=== PATIENT | male | born 1935 | race Caucasian/White ===

== ENCOUNTER 2021-07-16 03:02 | Inpatient (IN) | payer OTHER ==
[2021-07-16] MEDS ORDERED: ONDANSETRON 4 MG/2 ML VIAL ONE ×2 (03:23→16:19)
[2021-07-16] MEDS ORDERED: MORPHINE 2 MG/ML SYR ONE ×2 (03:23→05:49)
[2021-07-16 05:59] LABS: Absolute Lymphocytes (CBC) 0.6 K/uL (0.7-4.9); Hematocrit 46.4 % (39.6-49.0); Lymphocytes % 6.5 % (15.3-44.8); MPV 9.1 fL (7.6-11.3); RBC Red Blood Cell Count 4.83 M/uL (4.33-5.43)
[2021-07-16 06:03] LABS: Protime INR 0.9
[2021-07-16 06:13] LABS: Albumin 3.8 g/dL (3.4-5.0); Bilirubin Direct 0.2 mg/dL (0-0.2); Bilirubin Total 0.7 mg/dL (0.2-1.0); Protein, Total 7.7 g/dL (6.4-8.2)
--- NOTE | 2021-07-16 06:25 | ER ---
Nurse's Notes [facility] Name: Solomon Cook Age: 86 yrs Sex: Male : 1935 Arrival Date: 07/16/2021 Time: 03:04 Bed 6 Private MD: Diagnosis: Femoral neck fracture, left Presentation: 07/16 03:04 Chief complaint: EMS states: pt fell going up stairs, c/o l knee pain. Coronavirus as6 screen: At this time, the client does not indicate any symptoms associated with coronavirus-19. Ebola Screen: No symptoms or risks identified at this time. Initial Sepsis Screen: Does the patient meet any 2 criteria? No. Patient's initial sepsis screen is negative. Does the patient have a suspected source of infection? No. Patient's initial sepsis screen is negative. Risk Assessment: Do you want to hurt yourself or someone else? Patient reports no desire to harm self or others. Onset of symptoms was July 16, 2021. 03:04 Method Of Arrival: EMS: [facility] as6 03:04 Acuity: SHRUTHI 3 as6 Historical: - Allergies: 03:09 No Known Allergies; as6 - Home Meds: 03:09 None [Active]; as6 - PMHx: 03:09 None; as6 - PSHx: 03:09 Appendectomy; as6 - Immunization history:: Adult Immunizations not up to date. - Social history:: Smoking status: Patient denies any tobacco usage or history of. Screenin:13 Abuse screen: Denies threats or abuse. Denies injuries from another. Nutritional as6 screening: No deficits noted. Tuberculosis screening: No symptoms or risk factors identified. Fall Risk Fall in past 12 months (25 points). No secondary diagnosis (0 pts). IV access (20 points). Ambulatory Aid- None/Bed Rest/Nurse Assist (0 pts). Gait- Weak (10 pts.). Mental Status- Oriented to own ability (0 pts). Total Duarte Fall Scale indicates High Risk Score (45 or more points). Side Rails Up X 2 Frequent Obs/Assessments Occuring As available patient and family educated on Fall Prevention Program and Strategies. Assessment: 03:15 General: Appears uncomfortable, Behavior is calm, cooperative. Pain: Complains of pain as6 in left leg Quality of pain is described as sharp, shooting. Neuro: Level of Consciousness is awake, alert, obeys commands, Oriented to person, place, time, situation. Cardiovascular: Capillary refill < 3 seconds Patient's skin is warm and dry. Respiratory: Airway is patent Trachea midline Respiratory effort is even, unlabored, Respiratory pattern is regular, symmetrical. Derm: Skin is intact. Musculoskeletal: Reports pain in left leg. 04:08 General: pt still c/o pain to l leg, medicated per provider orders, "I feel like if I as6 stand up I could pass out from the pain" . 06:10 General: pt states he is feeling better and only c/o pain to l leg during movement . as6 Vital Signs: 03:04 BP 162 / 106; Pulse 98; Resp 20 S; Temp 98.5(O); Pulse Ox 99% on R/A; Weight 58.97 kg as6 (R); Height 5 ft. 7 in. (170.18 cm) (R); Pain 10/10; 04:08 BP 195 / 101; Pulse 94; Resp 18 S; Pulse Ox 99% on R/A; as6 05:45 BP 155 / 103; Pulse 87; Resp 18 S; Pulse Ox 100% on R/A; as6 03:04 Body Mass Index 20.36 (58.97 kg, 170.18 cm) as6 ED Course: 03:04 Patient arrived in ED. as6 03:05 Marlo Lezama MD is Attending Physician. mh7 03:09 Triage completed. as6 03:13 Arm band placed on. as6 03:14 Bed in low position. Call light in reach. Side rails up X2. personal lines underwriter on. Pulse as6 ox on. NIBP on. Warm blanket given. 03:17 Blake Sanabria, REGLA is Primary Nurse. as6 04:13 Femur Left XRAY In Process Unspecified. EDMS 04:13 Knee Left 3 View XRAY In Process Unspecified. EDMS 04:13 Tib Fib Left XRAY In Process Unspecified. EDMS 04:42 Pelvis XRAY In Process Unspecified. EDMS 06:22 Odessa Montana MD is Hospitalizing Provider. 7 07:06 Primary Nurse role handed off by Blake Sanabria, REGLA bp 07:06 Michael Villalba, RN is Primary Nurse. bp Administered Medications: 03:58 Drug: morphine 2 mg Route: IVP; Site: right forearm; as6 03:58 Drug: Zofran (Ondansetron) 4 mg Route: IVP; Site: right forearm; as6 05:57 Drug: morphine 2 mg Route: IVP; Site: right forearm; as6 09:07 Not Given (admit order usedd): D5-1/2 NS 1000 ml IV at 75 ml/hr continuous bp Outcome: 06:24 Decision to Hospitalize by Provider. [facility] 12:30 Patient left the ED. bp Signatures: Dispatcher [employer] EDMS Michael Villalba, RN RN bp Marlo Lezama MD MD 7 Blake Sanabria RN RN as6
--- NOTE | 2021-07-16 06:25 | EDPHYS ---
Physician Documentation [facility] Name: Solomon Cook Age: 86 yrs Sex: Male : 1935 Arrival Date: 07/16/2021 Time: 03:04 Bed 6 Private MD: ED Physician Marlo Lezama HPI: 07/16 03:26 This 86 yrs old Male presents to ER via EMS with complaints of Fall. Left leg pain.. mh7 03:27 Details of fall: The patient fell from an upright position, while walking, Going up 7 some stairs, and struck wood doroteo. Onset: The symptoms/episode began/occurred yesterday. Associated injuries: The patient sustained left leg, painful injury. Severity of symptoms: At their worst the symptoms were moderate, last night, in the emergency department the symptoms have improved, moderately. Historical: - Allergies: 03:09 No Known Allergies; as6 - Home Meds: 03:09 None [Active]; as6 - PMHx: 03:09 None; as6 - PSHx: 03:09 Appendectomy; as6 - Immunization history:: Adult Immunizations not up to date. - Social history:: Smoking status: Patient denies any tobacco usage or history of. ROS: 03:27 Constitutional: Negative for fever, chills, and weight loss, Eyes: Negative for injury, mh7 pain, redness, and discharge, ENT: Negative for injury, pain, and discharge, Neck: Negative for injury, pain, and swelling, Cardiovascular: Negative for chest pain, palpitations, and edema, Respiratory: Negative for shortness of breath, cough, wheezing, and pleuritic chest pain, Abdomen/GI: Negative for abdominal pain, nausea, vomiting, diarrhea, and constipation, Back: Negative for injury and pain, : Negative for injury, bleeding, discharge, and swelling, Skin: Negative for injury, rash, and discoloration, Neuro: Negative for headache, weakness, numbness, tingling, and seizure, Psych: Negative for depression, anxiety, suicide ideation, homicidal ideation, and hallucinations, Allergy/Immunology: Negative for hives, rash, and allergies, Endocrine: Negative for neck swelling, polydipsia, polyuria, polyphagia, and marked weight changes, Hematologic/Lymphatic: Negative for swollen nodes, abnormal bleeding, and unusual bruising. Exam: 03:27 Head/Face: Normocephalic, atraumatic. Eyes: Pupils equal round and reactive to light, mh7 extra-ocular motions intact. Lids and lashes normal. Conjunctiva and sclera are non-icteric and not injected. Cornea within normal limits. Periorbital areas with no swelling, redness, or edema. ENT: Nares patent. No nasal discharge, no septal abnormalities noted. Tympanic membranes are normal and external auditory canals are clear. Oropharynx with no redness, swelling, or masses, exudates, or evidence of obstruction, uvula midline. Mucous membranes moist. Neck: Trachea midline, no thyromegaly or masses palpated, and no cervical lymphadenopathy. Supple, full range of motion without nuchal rigidity, or vertebral point tenderness. No Meningismus. Chest/axilla: Normal chest wall appearance and motion. Nontender with no deformity. No lesions are appreciated. Cardiovascular: Regular rate and rhythm with a normal S1 and S2. No gallops, murmurs, or rubs. Normal PMI, no JVD. No pulse deficits. Respiratory: Lungs have equal breath sounds bilaterally, clear to auscultation and percussion. No rales, rhonchi or wheezes noted. No increased work of breathing, no retractions or nasal flaring. Abdomen/GI: Soft, non-tender, with normal bowel sounds. No distension or tympany. No guarding or rebound. No evidence of tenderness throughout. Back: No spinal tenderness. No costovertebral tenderness. Full range of motion. Skin: Warm, dry with normal turgor. Normal color with no rashes, no lesions, and no evidence of cellulitis. Neuro: Awake and alert, GCS 15, oriented to person, place, time, and situation. Cranial nerves II-XII grossly intact. Motor strength 5/5 in all extremities. Sensory grossly intact. Cerebellar exam normal. Normal gait. Psych: Awake, alert, with orientation to person, place and time. Behavior, mood, and affect are within normal limits. 03:27 Constitutional: The patient appears in no acute distress, alert, awake, uncomfortable. 03:27 Musculoskeletal/extremity: Extremities: noted in the Left thigh and left knee: pain, tenderness, ROM: limited active range of motion due to pain, in the left leg, limited passive range of motion due to pain, in the left leg, Circulation is intact in all extremities. Sensation intact. Compartment Syndrome exam of affected extremity: is normal. no numbness, no tingling, no sensation deficit, no palor, no weak pulses, Joints: the left knee displays tenderness, Weight bearing: able to fully bear weight, Tendon exam: specific tendon testing normal through active and passive range of motion Vital Signs: 03:04 BP 162 / 106; Pulse 98; Resp 20 S; Temp 98.5(O); Pulse Ox 99% on R/A; Weight 58.97 kg as6 (R); Height 5 ft. 7 in. (170.18 cm) (R); Pain 10/10; 04:08 BP 195 / 101; Pulse 94; Resp 18 S; Pulse Ox 99% on R/A; as6 05:45 BP 155 / 103; Pulse 87; Resp 18 S; Pulse Ox 100% on R/A; as6 03:04 Body Mass Index 20.36 (58.97 kg, 170.18 cm) as6 MDM: 06:21 Differential diagnosis: abrasion, contusion, fracture, sprain. Data reviewed: vital [facility] signs, nurses notes, EMS record, lab test result(s), CBC, electrolytes, radiologic studies, plain films. Data interpreted: Pulse oximetry: on room air is 100 %. Interpretation: normal. Counseling: I had a detailed discussion with the patient and/or guardian regarding: the historical points, exam findings, and any diagnostic results supporting the discharge/admit diagnosis, the presence of at least one elevated blood pressure reading (>120/80) during this emergency department visit, lab results, radiology results, the need for further work-up and treatment in the hospital. Response to treatment: the patient's symptoms have mildly improved after treatment. Physician consultation: Saul Melo MD was contacted at 05:54, regarding patient's condition, and will see patient in inpatient room, would like admission per Dr. Odessa Montana MD. 06:24 Patient medically screened. [facility] 07/16 05:22 Order name: Basic Metabolic Panel; Complete Time: 06:18 7 07/16 05:22 Order name: CBC with Diff [facility] 07/16 05:22 Order name: Type And Screen [facility] 07/16 05:22 Order name: LFT's; Complete Time: 06:18 [facility] 07/16 05:22 Order name: Protime (+inr); Complete Time: 06:18 [facility] 07/16 05:22 Order name: Ptt, Activated; Complete Time: 06:18 [facility] 07/16 05:53 Order name: COVID-19 (Coronavirus) Document "Date of Onset" if Symptomatic [facility] 07/16 06:10 Order name: CBC Smear Scan [facility] 07/16 06:38 Order name: Troponin I [facility] 07/16 06:38 Order name: CBC with Automated Diff [facility] 07/16 06:38 Order name: CBC with Automated Diff [facility] 07/16 06:38 Order name: Comprehensive Metabolic Panel [facility] 07/16 06:38 Order name: Comprehensive Metabolic Panel [facility] 07/16 07:43 Order name: SARS-COV-2 RT PCR [facility] 07/16 03:16 Order name: Femur Left XRAY [facility] 07/16 03:16 Order name: Knee Left 3 View XRAY [facility] 07/16 03:17 Order name: Tib Fib Left XRAY [facility] 07/16 04:17 Order name: Pelvis XRAY [facility] 07/16 05:22 Order name: Labs collected and sent; Complete Time: 06:09 [facility] 07/16 05:54 Order name: EKG; Complete Time: 05:55 [facility] 07/16 06:38 Order name: CONS Physician Consult [facility] 07/16 06:38 Order name: NPO [facility] 07/16 06:41 Order name: Physical Therapy Consult [facility] 07/16 06:41 Order name: CONS Rehab Consult [facility] 07/16 09:19 Order name: ABO/RH no charge [facility] 07/16 05:54 Order name: EKG - Nurse/Tech; Complete Time: 07:00 [facility] 07/16 05:56 Order name: NPO; Complete Time: 06:10 [facility] Administered Medications: 03:58 Drug: morphine 2 mg Route: IVP; Site: right forearm; as6 03:58 Drug: Zofran (Ondansetron) 4 mg Route: IVP; Site: right forearm; as6 05:57 Drug: morphine 2 mg Route: IVP; Site: right forearm; as6 09:07 Not Given (admit order usedd): D5-1/2 NS 1000 ml IV at 75 ml/hr continuous bp Disposition Summary: 07/16/21 06:24 Hospitalization Ordered Hospitalization Status: Inpatient Admission 7 Provider: Odessa Montana Condition: Stable mh7 Problem: new mh7 Symptoms: have improved mh7 Bed/Room Type: Standard [facility] Location: [facility] ER HOLD(07/16/21 11:08) bp Room Assignment: ERHOLD-(07/16/21 11:08) bp Diagnosis - Femoral neck fracture, left mh7 Forms: - Medication Reconciliation Form mh7 - SBAR form 7 Signatures: Dispatcher [employer] EDMS Michael Villalba, RN RN bp Marlo Lezama MD MD mh7 Blake Sanabria RN RN as6 Corrections: (The following items were deleted from the chart) 04:38 04:21 Hip Left 2 View+RAD.RAD.BRZ ordered. [facility] EDMS 11:08 06:24 Telemetry/MedSurg (Inpatient) mh7 bp 11:08 06:24 mh7 bp
[2021-07-16] MEDS ORDERED: ONDANSETRON 4 MG/2 ML VIAL IV PRN (06:36)
[2021-07-16] MEDS ORDERED: MORPHINE 4 MG/ML SYR IV PRN (06:36)
[2021-07-16] MEDS ORDERED: ACETAMINOPHEN 500 MG TAB PO PRN (06:36)
[2021-07-16 06:49] LABS: Blood Morphology Comment NOT SEEN (NOT SEEN); Platelet Estimate ADEQ; White Blood Cell Scan OK (OK)
[2021-07-16] MEDS: NA CHLORIDE 0.9% 1,000 ML IV SCH ×2 (07:00→20:20)
[2021-07-16] MEDS ORDERED: NA CHLORIDE 0.9% 1,000 ML ONE (09:14)
--- NOTE | 2021-07-16 09:18 | P.HP ---
Certification for Inpatient Patient admitted to: Inpatient With expected LOS: >2 Midnights Patient will require the following post-hospital care: Rehabilitation Practitioner: I am a practitioner with admitting privileges, knowledge of patient current condition, hospital course, and medical plan of care. Services: Services provided to patient in accordance with Admission requirements found in Title 42 Section 412.3 of the Code of Federal Regulations Patient History Date of Service: 07/16/21 Reason for admission: Left hip fracture History of Present Illness: Patient is a 86-year-old gentleman who came to the hospital after falling on the stairs. He fell on hip when was going up the stairs, and he landed on his left side. He was having a hard time moving and he was brought to the emergency room. X-ray revealed left-sided hip fracture. Patient be admitted to the hospital for further evaluation. Patient does not have a lot of medical problem s. He is in pretty good health. He will be admitted and he is medically cleared for surgical intervention. Allergies No Known Allergies Allergy (Unverified 07/16/21 09:22) Home Medications: NK [No Home Meds] 07/16/21 - Past Medical/Surgical History Past Medical History: Patient denies medical history -: Appendectomy - Family History Father Family History: Reviewed- Non-Contributory - Social History Smoking Status: Never smoker Alcohol use: No CD- Drugs: No Review of Systems 10-point ROS is otherwise unremarkable Physical Examination - Vital Signs Temperature: 98 F Blood Pressure: 180/90 Pulse: 80 Respirations: 18 Pulse Ox (%): 95 - Physical Exam General: Alert, In no apparent distress, Oriented x3 HEENT: Atraumatic, PERRLA, Mucous membr. moist/pink, EOMI, Sclerae nonicteric Neck: Supple, 2+ carotid pulse no bruit, No LAD, Without JVD or thyroid abnormality Respiratory: Clear to auscultation bilaterally, Normal air movement Cardiovascular: Regular rate/rhythm, Normal S1 S2 Gastrointestinal: Normal bowel sounds, No tenderness Musculoskeletal: Tenderness Integumentary: No rashes Neurological: Normal gait, Normal speech, Normal strength at 5/5 x4 extr, Normal tone, Sensation intact, Cranial nerves 3-12 intact, Normal affect Lymphatics: No axilla or inguinal lymphadenopathy - Studies Laboratory Data (last 24 hrs) 07/16/21 05:38: PT 10.3, INR 0.90, APTT 23.6 L 07/16/21 05:38: WBC 9.00, Hgb 15.6, Hct 46.4, Plt Count 187 07/16/21 05:38: Sodium 139, Potassium 4.0, BUN 28 H, Creatinine 1.89 H, Glucose 124 H, Total Bilirubin 0.7, AST 14 L, ALT 15, Alkaline Phosphatase 56 Assessment & Plan - Problems (Diagnosis) (1) Hip fracture, left Current Visit: Yes Status: Acute - Plan Plan: 1. NPO 2. Orthopedic consultation 3. Pain control 4. Blood pressure control 5. Patient has no significant cardiopulmonary risk factors and the benefits of surgery outweigh the risks. Patient has no significant medical problems and is at very low risk for cardiopulmonary complications in the operative and perioperative period. Discharge Plan: Home Plan to discharge in: Greater than 2 days - Advance Directives Does patient have a Living Will: No Does patient have a Durable POA for Healthcare: No - Code Status/Comfort Care Code Status Assessed: Yes Code Status: Full Code Critical Care: No Time Spent Managing PTS Care (In Minutes): 45
[2021-07-16] MEDS ORDERED: METOPROLOL TARTRATE 5 MG/5 ML INJ IV ONE (10:17)
[2021-07-16] MEDS: METOPROLOL TARTRATE 5 MG/5 ML INJ IV PRN ×2 (10:19→15:29)
[2021-07-16 12:43] VITALS: BMI 19.5
[2021-07-16] MEDS ORDERED: TRANEXAMIC ACID 1,000 MG in NA CHLORIDE 0.9% 50 ML IV ONE ×4 (16:00)
--- NOTE | 2021-07-16 16:08 | RAD REPORT ---
EXAM DESCRIPTION: RAD - Femur Left - 07/16/2021 4:13 am CLINICAL HISTORY: The patient is 86 years old and is Male; fall;Pain TECHNIQUE: Two views of the left femur. COMPARISON: No relevant prior studies available. FINDINGS: Bones/joints: Displaced left femoral neck fracture. No hip dislocation. Soft tissues: Unremarkable. IMPRESSION: Displaced left femoral neck fracture. Electronically signed by: Daisy Luong MD 07/16/2021 5:27 AM FINANCIAL SALES MANAGER Due to temporary technical issues with the PACS/Fluency reporting system, reports are being signed by the in house radiologists without review as a courtesy to insure prompt reporting. The interpreting radiologist is fully responsible for the content of the report.
[2021-07-16] MEDS ORDERED: Ringers Lactate 1,000 ML IV ONE (16:15)
[2021-07-16] MEDS ORDERED: propofoL 200 MG/20 ML VIAL IV ONE (16:17)
[2021-07-16] MEDS ORDERED: FENTANYL CITR 100 MCG/2 ML ONE (16:17)
[2021-07-16] MEDS ORDERED: NEOSTIGMINE 1 MG/ML -5 ML ONE (16:18)
[2021-07-16] MEDS ORDERED: dexAMETHasone 4 MG/ML VIAL ONE (16:18)
[2021-07-16] MEDS ORDERED: MIDAZOLAM HCL 2 MG/2 ML INJ ONE (16:18)
[2021-07-16] MEDS ORDERED: GLYCOPYRROLATE 0.2 MG/ML SYR ONE (16:18)
[2021-07-16] MEDS ORDERED: LIDOCAINE 1% MPF 5 ML VIAL ONE (16:18)
[2021-07-16] MEDS ORDERED: KETOROLAC 30 MG/ML INJ ONE (16:19)
[2021-07-16] MEDS ORDERED: ROCURONIUM 50 MG/5 ML VIAL IV ONE (16:19)
[2021-07-16] MEDS ORDERED: MORPHINE 10 MG/ML VIAL ONE (16:19)
--- NOTE | 2021-07-16 16:39 | RAD REPORT ---
EXAM DESCRIPTION: RAD - Knee Left 3 View - 07/16/2021 4:13 am CLINICAL HISTORY: The patient is 86 years old and is Male; fall;Pain TECHNIQUE: Three views of the left knee. COMPARISON: No relevant prior studies available. FINDINGS: Bones/joints: Mild bone demineralization. No effusion. No acute fracture. No dislocation. Soft tissues: Unremarkable. IMPRESSION: No acute fracture visualized. Electronically signed by: Daisy Luong MD 07/16/2021 5:29 AM METAL CUT OFF SAW OPERATOR Due to temporary technical issues with the PACS/Fluency reporting system, reports are being signed by the in house radiologists without review as a courtesy to insure prompt reporting. The interpreting radiologist is fully responsible for the content of the report.
--- NOTE | 2021-07-16 16:41 | RAD REPORT ---
EXAM DESCRIPTION: RAD - Tib Fib Left - 07/16/2021 4:14 am CLINICAL HISTORY: The patient is 86 years old and is Male; fall;Pain TECHNIQUE: Two views of the left tibia and fibula. COMPARISON: No relevant prior studies available. FINDINGS: Bones/joints: Unremarkable. No acute fracture. No dislocation. Soft tissues: Unremarkable. No radiopaque foreign body. IMPRESSION: No acute fracture visualized. Electronically signed by: Daisy Luong MD 07/16/2021 5:30 AM TUBER OPERATOR Due to temporary technical issues with the PACS/Fluency reporting system, reports are being signed by the in house radiologists without review as a courtesy to insure prompt reporting. The interpreting radiologist is fully responsible for the content of the report.
[2021-07-16] MEDS ORDERED: CEFAZOLIN ONE (16:50)
[2021-07-16] MEDS ORDERED: NS ONE (16:50)
--- NOTE | 2021-07-16 16:57 | RAD REPORT ---
EXAM DESCRIPTION: RAD - Pelvis - 07/16/2021 4:42 am CLINICAL HISTORY: The patient is 86 years old and is Male; TRAUMA TECHNIQUE: Single frontal view of the pelvis. COMPARISON: No relevant prior studies available. FINDINGS: Bones/joints: Displaced left femoral neck fracture. No hip dislocation. Soft tissues: Unremarkable. IMPRESSION: Displaced left femoral neck fracture. Electronically signed by: Daisy Luong MD 07/16/2021 5:27 AM DIABETIC EDUCATOR Due to temporary technical issues with the PACS/Fluency reporting system, reports are being signed by the in house radiologists without review as a courtesy to insure prompt reporting. The interpreting radiologist is fully responsible for the content of the report.
--- NOTE | 2021-07-16 18:23 | CON ---
Reason For Consultation: Left femoral neck fracture. History Of Present Illness: Mr. Cook is an 86-year-old gentleman who sustained of left femoral n melody fracture about 6 days prior to his presentation. He was minimally ambulatory in his home. He ca me into the emergency room after continued pain. He is in pretty good shape. He has no medications at home. He is alert, oriented x3. Complains of pain only in the left hip. [facility] taken in [facility] reveal a completely displaced left femoral neck fracture. Physical Examination: General: He is alert, oriented x3. Chest: Clear. Abdomen: Soft. Extremities: Left hip is painful, not assessed removed secondary to known fracture. Neurologic: He appears to be neurovascular intact. Diagnostic Studies: X-rays revealed as outlined. Plan: Plan will be to proceed with a left hip hemiarthroplasty after medical clearance. CHERY/KALYN Voice ID: [id number] Report ID: [id number]
[2021-07-16] MEDS ORDERED: HYDROCODONE/APAP 7.5/325 MG TAB PO PRN (18:46)
[2021-07-16] MEDS ORDERED: ALBUTEROL 2.5 MG/3 ML NEB SOL ONE (18:54)
[2021-07-16] MEDS ORDERED: NACHLORIDE 0.45% 1,000 ML IV ONE (19:06)
--- NOTE | 2021-07-16 20:26 | RAD REPORT ---
EXAM DESCRIPTION: RAD - Pelvis - 07/16/2021 7:37 pm CLINICAL HISTORY: S/P LEFT HIP PATRICK ARTHROPLASTY COMPARISON: Pelvis dated 07/16/2021 FINDINGS: Postoperative changes are present of a left hip arthroplasty. No unexpected immediate post operative finding. Skin herminio are present laterally.
[2021-07-16] MEDS: NACHLORIDE 0.45% 1,000 ML IV SCH (20:43)
[2021-07-16] MEDS: DOCUSATE NA 100 MG CAP PO SCH (20:43)
--- NOTE | 2021-07-16 22:29 | OP ---
Surgeon: Saul Mahmood MD Fire Extinguisher Mechanic: Size Worker: BRENDEN Moeller. Preoperative Diagnosis: Left femoral neck fracture. Postoperative Diagnosis: Left femoral neck fracture. Procedure Performed: Left hip hemiarthroplasty. Complications: None. Disposition: Recovery room, stable. Operative Report In Detail: The patient was taken to the operative suite, placed in the supine posit ion, induced anesthesia. The left hip was prepped and draped in the usual sterile fashion. Utilizin g a posterior approach to the hip, the tensor fascia skyler was incised. The external rotator was elev ated subperiosteally and tagged for later reattachment. The fractured femoral neck was delivered, os teotomized 1 fingerbreadth above the lesser trochanter followed by reaming broach technique for a 12 stem after delivery of a 48 ball. The 12 stem was then placed, standard offset, with a +3 ball and p ermanent 48 head. The patient tolerated the procedure well, reversing of anesthesia at the time of d ictation. A layered closure was performed including the repair of external rotators through drill ho les in bone. CHERY/KALYN Voice ID: [id number] Report ID: [id number]
[2021-07-16] MEDS ORDERED: LORazepam 2 MG/ML VIAL IV ONE (22:54)
[2021-07-16] MEDS: MORPHINE 2 MG/ML SYR IV PRN (23:18)
[2021-07-17] MEDS: CEFAZOLIN 1 GM in NA CHLORIDE 0.9% 50 ML IVPB SCH ×2 (00:04→08:32)
[2021-07-17] MEDS ORDERED: CEFAZOLIN/NS 1gm 1 GM/50 ML BAG IVPB SCH (01:00)
[2021-07-17 06:03] LABS: Absolute Lymphocytes (CBC) 0.4 K/uL (0.7-4.9); Hematocrit 34.7 % (39.6-49.0); Lymphocytes % 5.4 % (15.3-44.8); MPV 9.1 fL (7.6-11.3)
[2021-07-17 06:20] LABS: Albumin 2.6 g/dL (3.4-5.0); Bilirubin Total 0.6 mg/dL (0.2-1.0); Potassium 4.8 mmol/L (3.5-5.1); Protein, Total 5.8 g/dL (6.4-8.2)
[2021-07-17] MEDS: DOCUSATE NA 100 MG CAP PO SCH ×2 (08:31→20:25)
[2021-07-17] MEDS: NACHLORIDE 0.45% 1,000 ML IV SCH ×2 (10:13→22:57)
[2021-07-17] MEDS: ENOXAPARIN 30 MG/0.3 ML SQ SCH ×2 (10:13→22:58)
--- NOTE | 2021-07-17 11:20 | P.CNS ---
Date of Consult: 07/16/21 Reason for Consult: left hip fracture Chief Complaint: Left hip fracture History of Present Illness: patient fell at home after missing last steps comming down stairs, he initiallt tried to nighat around the home but then the pain became to much to bare weight, doi 07/08/2021 8 days ago. pain localized to left hip. NPO Allergies No Known Allergies Allergy (Unverified 07/16/21 09:22) Home Medications: NK [No Home Meds] 07/16/21 - Past Medical/Surgical History Diabetic: No -: HTN -: Appendectomy - Family History Father Family History: Reviewed- Non-Contributory - Social History Alcohol use: No CD- Drugs: No Caffeine use: Yes Place of Residence: Home Review of Systems 10-point ROS is otherwise unremarkable Physical Examination Temp Pulse Resp BP Pulse Ox 97.0 F 59 20 148/81 H 96 07/17/21 08:00 07/17/21 08:00 07/17/21 08:00 07/17/21 08:00 07/17/21 08:00 General: Alert, Oriented x3 Neck: Supple Respiratory: Normal air movement Cardiovascular: No edema Capillary refill: <2 Seconds Musculoskeletal: Other (left hip pain) Neurological: Normal speech, Normal affect - Problems (1) Left displaced femoral neck fracture Onset Date: ~07/08/21 Current Visit: Yes Status: Acute Plan: we will plan to do a left hip hemiarthroplasty as soon as he is safe and cleared, consented now (2) Left displaced femoral neck fracture Current Visit: Yes Status: Acute
--- NOTE | 2021-07-17 11:25 | P.PN ---
Subjective Date of Service: 07/17/21 Chief Complaint: Left hip fracture Subjective: No new changes Review of Systems 10-point ROS is otherwise unremarkable Physical Examination - Vital Signs Temperature: 97.0 F Blood Pressure: 148/81 Pulse: 59 Respirations: 20 Pulse Ox (%): 96 - Physical Exam Musculoskeletal: Other (dressings c/d/I nvi) Assessment And Plan - Current Problems (Diagnosis) (1) Left displaced femoral neck fracture Onset Date: ~07/08/21 Current Visit: Yes Status: Acute Plan: Full WBAT with PT, anticoagulate 28 days from discharge, follow up in office 2 weeks post op. hospitalist to manage. change dressing to Aquacel dressing prior to discharge (2) Left displaced femoral neck fracture Current Visit: Yes Status: Acute
[2021-07-17] MEDS: MORPHINE 2 MG/ML SYR IV PRN (23:12)
[2021-07-18] MEDS: MORPHINE 2 MG/ML SYR IV PRN (02:45)
[2021-07-18] MEDS ORDERED: MORPHINE 2 MG/ML SYR IV ONE (03:02)
[2021-07-18] MEDS: DOCUSATE NA 100 MG CAP PO SCH ×2 (09:00→20:11)
[2021-07-18] MEDS: ENOXAPARIN 30 MG/0.3 ML SQ SCH ×2 (12:00→22:36)
[2021-07-18] MEDS: NACHLORIDE 0.45% 1,000 ML IV SCH (15:07)
--- NOTE | 2021-07-18 16:13 | CON ---
Date of Consultation: 07/17/2021 Reason For Consultation: Cardiac preop evaluation for hip fracture surgery. History Of Present Illness: 86-year-old male with no significant past medical history, presented to hospital after falling on the stairs and had left hip pain, found to have left hip fracture, presente d to the emergency room and a surgical fixation was planned. However, the patient denies having any history of cardiac disease or any chest pain or active chest pain, but is an elderly gentleman, not v jin active. Past Medical History: Denies. Past Surgical History: Appendectomy. Medications: Refer reconciliation sheet for detailed list. Allergies: NO KNOWN DRUG ALLERGIES. Family History: No premature coronary artery disease or cancer. Social History: Does not smoke or drink. Does not use any drugs. Review of Systems: All systems reviewed and they were negative except for mentioned in HPI. Physical Examination: Vital Signs: Reviewed and were stable. Head and Neck: Pupils are equal, reactive to light. Intact eye movements. No JVD. No cervical lym phadenopathy. Neck is supple. Thyroid is not enlarged. Lungs: Clear to auscultation bilaterally. Heart: Regular rate and rhythm. No extra sounds. Abdomen: Soft, nontender. Bowel sounds positive. No organomegaly. No masses or hernia. No rigidi ty or rebound. Extremities: No edema, clubbing, or cyanosis. Intact pulses. Skin: No rashes. Neurologic: Alert, awake, oriented x3. No acute focal deficits appreciated. Investigations: His creatinine is 1.68. Hemoglobin is 11.9. Assessment And Recommendations: Cardiac preop evaluation. The patient was seen and he already had t he surgery and no cardiac complications noted. At this point, I will be available for any further qu estions. No further cardiac workup is indicated at this time unless patient presents with any sympto ms. Thank you for the consult. /KALYN Voice ID: [id number] Report ID: [id number]
[2021-07-18] MEDS: METOPROLOL TARTRATE 5 MG/5 ML INJ IV PRN (22:44)
[2021-07-19] MEDS: NACHLORIDE 0.45% 1,000 ML IV SCH ×3 (01:43→22:00)
[2021-07-19] MEDS: HYDRALAZINE HCL 20 MG/ML VIAL IV PRN ×2 (01:43→11:50)
[2021-07-19] MEDS: MORPHINE 2 MG/ML SYR IV PRN (04:54)
[2021-07-19 05:47] LABS: Absolute Lymphocytes (CBC) 0.4 K/uL (0.7-4.9); Hematocrit 25.2 % (39.6-49.0); Lymphocytes % 6.8 % (15.3-44.8); MPV 9.3 fL (7.6-11.3); RBC Red Blood Cell Count 2.63 M/uL (4.33-5.43)
[2021-07-19 06:11] LABS: Albumin 1.7 g/dL (3.4-5.0); Bilirubin Total 0.6 mg/dL (0.2-1.0); Phosphorus 1.3 mg/dL (2.5-4.9); Potassium 3.4 mmol/L (3.5-5.1); Protein, Total 4.3 g/dL (6.4-8.2)
[2021-07-19 06:33] LABS: Blood Morphology Comment NOT SEEN (NOT SEEN); Platelet Estimate DECR; White Blood Cell Scan OK (OK)
[2021-07-19] MEDS: DOCUSATE NA 100 MG CAP PO SCH ×2 (08:13→20:16)
[2021-07-19] MEDS ORDERED: POTASSIUM PHOS 30 MM in NA CHLORIDE 0.9% 500 ML IV ONE (13:16)
[2021-07-19] MEDS ORDERED: CALCIUM GLUC 10% INJ 9.3 MEQ in NA CHLORIDE 0.9% 100 ML IV ONE (13:16)
[2021-07-19] MEDS ORDERED: FUROSEMIDE 20 MG/ 2ML VIAL IV ONE (13:19)
--- NOTE | 2021-07-19 13:26 | P.PN ---
Subjective Date of Service: 07/17/21 Patient was taken to the operating room and he is doing well. He is walking with physical therapy. He does not want go to rehabilitation and he may qualify for outpatient physical therapy. Will continue to monitor him closely. His blood pressure is slightly elevated. Review of Systems 10-point ROS is otherwise unremarkable Physical Examination - Vital Signs Temperature: 98 F Blood Pressure: 180/90 Pulse: 80 Respirations: 18 Pulse Ox (%): 95 - Physical Exam General: Alert, In no apparent distress, Oriented x3 Respiratory: Clear to auscultation bilaterally, Normal air movement Cardiovascular: Regular rate/rhythm, Normal S1 S2, No murmurs Gastrointestinal: Normal bowel sounds, Soft and benign, Non-distended, No tenderness Musculoskeletal: No clubbing, No swelling, Tenderness Integumentary: No rashes Neurological: Normal strength at 5/5 x4 extr, Sensation intact, Cranial nerves 3-12 intact - Studies Medications List Reviewed: Yes Assessment & Plan - Problems (Diagnosis) (1) Hip fracture, left Current Visit: Yes Status: Acute - Plan Plan: 1. Diet as tolerated 2. Orthopedic consultation appreciated 3. Pain control 4. Blood pressure control 5. Continue anti coagulation 6. Appreciate physical therapy evaluation Discharge Plan: Home Plan to discharge in: Greater than 2 days - Advance Directives Does patient have a Living Will: No Does patient have a Durable POA for Healthcare: No - Code Status/Comfort Care Code Status: Full Code Critical Care: No Time Spent Managing PTS Care (In Minutes): 35
--- NOTE | 2021-07-19 13:29 | P.PN ---
Date of Service: 07/18/21 Subjective Patient had some hematuria. Singleton catheter was replaced. IV hydration Review of Systems 10-point ROS is otherwise unremarkable Physical Examination - Vital Signs Reviewed - Physical Exam General: Alert, In no apparent distress, Oriented x3 Respiratory: Clear to auscultation bilaterally, Normal air movement Cardiovascular: Regular rate/rhythm, Normal S1 S2, No murmurs Gastrointestinal: Normal bowel sounds, Soft and benign, Non-distended, No tenderness Musculoskeletal: No clubbing, No swelling, Tenderness : Singleton in place. Patient with hematuria - Studies Medications List Reviewed: Yes Assessment & Plan - Problems (Diagnosis) (1) Hip fracture, left Current Visit: Yes Status: Acute - Plan Continue with plan of care as mentioned below: 1. Diet as tolerated 2. Orthopedic consultation appreciated 3. Continue with Singleton catheter-IV fluids and will Dc in morning if no hematuria 4. Blood pressure control 5. Continue anti coagulation 6. Appreciate physical therapy evaluation
--- NOTE | 2021-07-19 13:30 | P.PN ---
Date of Service: 07/19/21 Subjective Patient continues to do well.Dc Singleton catheter. Resume anti coagulation if no bleeding. Strict blood pressure control. May benefit from inpatient rehab as patient is not really doing well with multiple medical problems in the hospital. Patient clinical conditions are stable. Review of Systems 10-point ROS is otherwise unremarkable Physical Examination - Vital Signs Reviewed - Physical Exam General: Alert, In no apparent distress, Oriented x3 Respiratory: Clear to auscultation bilaterally, Normal air movement Cardiovascular: Regular rate/rhythm, Normal S1 S2, No murmurs Gastrointestinal: Normal bowel sounds, Soft and benign, Non-distended, No tenderness Musculoskeletal: No clubbing, No swelling, Tenderness : Singleton in place. Patient with hematuria Assessment & Plan - Problems (Diagnosis) (1) Hip fracture, left Current Visit: Yes Status: Acute - Plan Continue with plan of care as mentioned below: 1. Diet as tolerated 2. Orthopedic consultation appreciated 3. Continue with Singleton catheter-IV fluids and will Dc in morning if no hematuria 4. Blood pressure control 5. Continue anti coagulation 6. Appreciate physical therapy evaluation
[2021-07-19] MEDS: ENSURE HIGH PROTEIN 237 ML CAN PO SCH ×2 (14:00→20:17)
[2021-07-19] MEDS ORDERED: TEMAZEPAM 15 MG CAP PO PRN (17:16)
[2021-07-19] MEDS ORDERED: ONDANSETRON 4 MG/2 ML VIAL IV ONE (17:16)
[2021-07-19] MEDS: METOPROLOL TAR 25 MG TAB PO SCH (17:43)
--- NOTE | 2021-07-19 18:03 | RAD REPORT ---
EXAM DESCRIPTION: RAD - Abdomen 1 View (KUB) - 07/19/2021 5:36 pm CLINICAL HISTORY: nausea and vomiting COMPARISON: No comparisons FINDINGS: No gastric dilatation. Air is seen in multiple nondilated small bowel loops. Air and stool are seen scattered throughout nondilated colon from cecum to rectum. No obstruction, free air or pne umatosis. No suspicious calcifications. No significant bony findings left convex curvature is seen in the lumbar spine. Left total hip prosth esis in place. IMPRESSION: No obstruction or acute finding. Enteritis or ileus are still possible.
[2021-07-19] MEDS: JUVEN PACKET PO SCH (20:17)
[2021-07-20] MEDS: METOPROLOL TAR 25 MG TAB PO SCH ×2 (05:41→17:09)
[2021-07-20] MEDS: NACHLORIDE 0.45% 1,000 ML IV SCH ×3 (05:41→23:00)
[2021-07-20] MEDS ORDERED: TAMSULOSIN 0.4 MG SR CAP PO ONE (06:40)
[2021-07-20 06:48] LABS: Absolute Lymphocytes (CBC) 0.5 K/uL (0.7-4.9); Hematocrit 33.4 % (39.6-49.0); Lymphocytes % 5.5 % (15.3-44.8); MPV 9.5 fL (7.6-11.3); RBC Red Blood Cell Count 3.49 M/uL (4.33-5.43)
[2021-07-20 07:12] LABS: Albumin 2.5 g/dL (3.4-5.0); Bilirubin Total 1.3 mg/dL (0.2-1.0); Potassium 4.2 mmol/L (3.5-5.1); Protein, Total 6.4 g/dL (6.4-8.2)
[2021-07-20] MEDS: HYDRALAZINE HCL 20 MG/ML VIAL IV PRN (08:05)
[2021-07-20] MEDS: ENSURE HIGH PROTEIN 237 ML CAN PO SCH ×4 (08:05→21:00)
[2021-07-20] MEDS: ENOXAPARIN 30 MG/0.3 ML SQ SCH ×2 (08:05→17:09)
[2021-07-20] MEDS: DOCUSATE NA 100 MG CAP PO SCH ×2 (08:05→20:41)
[2021-07-20] MEDS: JUVEN PACKET PO SCH ×2 (08:05→20:42)
[2021-07-20] MEDS ORDERED: LOSARTAN POTASSIUM 50 MG TABLET PO SCH (09:00)
[2021-07-20 09:04] LABS: Blood Morphology Comment NOT SEEN (NOT SEEN); Platelet Estimate ADEQ
--- NOTE | 2021-07-20 22:58 | P.PN ---
Date of Service: 07/20/21 Subjective Patient continues to have weakness. Patient is doing okay with therapy. Patient had some bladder retention. Patient had to have Singleton catheter replaced. Hematuria has resolved. However, patient still has bladder retention and has started on Flomax. Hemoglobin yesterday was low but today it is normal. Renal function is elevated. Continue with IV fluids. Review of Systems 10-point ROS is otherwise unremarkable Physical Examination - Vital Signs Reviewed - Physical Exam General: Alert, In no apparent distress, Oriented x3 Respiratory: Clear to auscultation bilaterally, Normal air movement Cardiovascular: Regular rate/rhythm, Normal S1 S2, No murmurs Gastrointestinal: Normal bowel sounds, Soft and benign, Non-distended, No tenderness Musculoskeletal: No clubbing, No swelling, Tenderness : Singleton in place. Assessment & Plan - Problems (Diagnosis) (1) Hip fracture, left Current Visit: Yes Status: Acute (2) Current Visit: Yes Status: Resolved (3) Bladder retention Current Visit: Yes Status: Acute (4) Hematuria Current Visit: Yes Status: Resolved - Plan Continue with plan of care as mentioned below: 1. Diet as tolerated 2. Orthopedic consultation appreciated; continue with physical therapy 3. Continue with Singleton catheter-IV fluids and will start on Flomax; may do a leg bag 4. Blood pressure control 5. Holding anti coagulation 6. Gentle IV hydration 7. GI and DVT prophylaxis
[2021-07-21 05:43] LABS: Absolute Lymphocytes (CBC) 0.5 K/uL (0.7-4.9); Hematocrit 27.2 % (39.6-49.0); Lymphocytes % 7.3 % (15.3-44.8); MPV 9.2 fL (7.6-11.3); RBC Red Blood Cell Count 2.84 M/uL (4.33-5.43)
[2021-07-21] MEDS: NACHLORIDE 0.45% 1,000 ML IV SCH ×2 (05:44→08:29)
[2021-07-21] MEDS: METOPROLOL TAR 25 MG TAB PO SCH ×2 (05:45→17:55)
[2021-07-21 06:01] LABS: Magnesium 2.3 mg/dL (1.8-2.4); Potassium 3.9 mmol/L (3.5-5.1)
--- NOTE | 2021-07-21 06:23 | P.PN ---
Subjective Date of Service: 07/21/21 Primary Care Provider: unknown Chief Complaint: Left hip fracture Subjective: Improving (Patient more alert. No confusion noted. Singleton catheter in place. 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 Preoperative Diagnosis: Left femoral neck fracture. Postoperative Diagnosis: Left femoral neck fracture. Procedure Performed: Left hip hemiarthroplasty. Complications: None. Physical exam: General: Alert, In no apparent distress, Oriented x3. No confusion noted. Follows commands Respiratory: Clear to auscultation bilaterally, Normal air movement Cardiovascular: Regular rate/rhythm, Normal S1 S2, No murmurs Gastrointestinal: Normal bowel sounds, Soft and benign, Non-distended, No tenderness Musculoskeletal: No clubbing, No swelling, Tenderness : Singleton in place. No hematuria noted. Impression: Left hip fracture status post repair Acute encephalopathy secondary to sundowning Bladder retention Hematuria Hypertension Plan: Left hip fracture status left hip eyad-arthroplasty: Doing well. Will change IV pain medication to oral. Continue with DVT prophylaxis. Continue physical therapy. Will recommend inpatient rehab to further assist. Will discuss with PT to help evaluate. Acute encephalopathy secondary to sundowning: Much improved. No further confusion. Back to his baseline. Will monitor closely. Bladder retention: Patient remains on Flomax 0.8 mg. Sing[address] catheter in place. No further hematuria noted. We will continue to monitor. Hematuria: No hematuria noted. Consider voiding trial versus continue with Singleton catheter. Hypertension: New diagnosis. Continue to adjust blood pressure medication for better blood pressure control. Increase metoprolol to 50 mg 1 pill twice daily. Also on losartan 50 mg daily. DVT prophylaxis: Lovenox CODE STATUS: Full code Advance care planning: Inpatient rehab. Patient agreeable to inpatient rehab if approved. Time Spent Managing Pts Care (In Minutes): 55
[2021-07-21] MEDS ORDERED: LOSARTAN POTASSIUM 50 MG TABLET PO SCH (08:28)
[2021-07-21] MEDS: JUVEN PACKET PO SCH ×2 (09:00→20:11)
[2021-07-21] MEDS: ENSURE HIGH PROTEIN 237 ML CAN PO SCH ×3 (09:00→20:11)
[2021-07-21] MEDS: TAMSULOSIN 0.4 MG SR CAP PO SCH (09:32)
[2021-07-21] MEDS: DOCUSATE NA 100 MG CAP PO SCH ×2 (09:32→20:11)
[2021-07-21 10:16] VITALS: O2SAT 97
--- NOTE | 2021-07-21 13:55 | P.DS ---
Admission Date: 07/16/21 Discharge Date: 07/21/21 Primary Care Provider: unknown Disposition: TRANSFER TO INPATIENT REHAB Discharge Condition: GOOD Reason for Admission: Left hip fracture Consultations: Orthopedics-Dr. 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 Preoperative Diagnosis: Left femoral neck fracture. Postoperative Diagnosis: Left femoral neck fracture. Procedure Performed: Left hip hemiarthroplasty. Complications: None. Medical Problem List: Left hip fracture status post repair Acute encephalopathy secondary to sundowning Bladder retention Hematuria Hypertension Brief History of Present Illness: 86-year-old presented after a fall. He fell along the stairs. Patient found to have left-sided hip fracture. Patient was admitted for treatment. Hospital Course: Patient presented after a fall. Patient found to have left hip fracture. Patient required hospitalization. Patient was seen and evaluated by orthopedics. Surgical invention was recommended. Patient had left hip hemiarthroplasty. Postoperatively patient had acute encephalopathy with sundowning. This resolved. At discharge pain well controlled. Patient back to his baseline. Patient was evaluated for inpatient rehab. Patient agrees. Patient accepted. Patient will continue at inpatient rehab to continue therapy. Continue with DVT prophyla xisLovenox for at least 14 days. Continue with physical therapy recommendations. Follow-up with orthopedics as directed. Patient also had bladder retention. Singleton catheter was placed. When the patient had some sundowning he pulled on the Singleton catheter. Hematuria was noted. Patient was started on Flomax and catheter replaced. Patient has done well. No further bleeding noted. Patient remains on Flomax. At discharge patient will continue with Flomax 0.8 mg daily. Consider voiding trial in inpatient rehab in the next several days. If the patient redevelops with retention then Singleton catheter will need to be placed with follow-up with urology. Patient found to have hypertension. This appears to be a new diagnosis. Blood pressures have been adjusted. At discharge patient will continue with metoprolol 50 mg 1 pill twice daily and losartan 50 mg 1 pill twice daily. Recommend to maintain blood pressure less than 130/80. If blood pressures remain above 140/90 further adjustment may be required. Recommend follow-up with PCP as an outpatient to further address. Vital Signs/Physical Exam: Temp Pulse Resp BP Pulse Ox 97.9 F 60 18 194/76 H 96 07/21/21 12:00 07/21/21 12:00 07/21/21 12:00 07/21/21 12:00 07/21/21 12:00 General: Alert, In no apparent distress, Oriented x3, Cooperative HEENT: Atraumatic Neck: Supple Respiratory: Clear to auscultation bilaterally, Normal air movement Cardiovascular: Normal pulses, Regular rate/rhythm Gastrointestinal: Normal bowel sounds, No tenderness, No masses, No rebound, No guarding Musculoskeletal: No erythema, No tenderness, No warmth Integumentary: No erythema, No warmth, No cyanosis Neurological: Normal speech, Normal strength at 5/5 x4 extr, Normal tone, Normal affect Urinary: Singleton catheter Laboratory Data at Discharge: WBC 7.10 K/uL (4.3-10.9) D 07/21/21 05:11 Hgb 9.6 g/dL (13.6-17.9) L 07/21/21 05:11 Hct 27.2 % (39.6-49.0) L D 07/21/21 05:11 Plt Count 146 K/uL (152-406) L D 07/21/21 05:11 PT 10.3 SECONDS (9.5-12.5) 07/16/21 05:38 INR 0.90 07/16/21 05:38 APTT 23.6 SECONDS (24.3-36.9) L 07/16/21 05:38 Sodium 135 mmol/L (136-145) L 07/21/21 05:11 Potassium 3.9 mmol/L (3.5-5.1) 07/21/21 05:11 BUN 31 mg/dL (7-18) H 07/21/21 05:11 Creatinine 1.06 mg/dL (0.55-1.3) 07/21/21 05:11 Glucose 95 mg/dL (74-106) 07/21/21 05:11 Phosphorus 1.3 mg/dL (2.5-4.9) L 07/19/21 05:37 Magnesium 2.3 mg/dL (1.8-2.4) 07/21/21 05:11 Total Bilirubin 1.3 mg/dL (0.2-1.0) H 07/20/21 06:10 AST 36 U/L (15-37) 07/20/21 06:10 ALT 19 U/L (12-78) 07/20/21 06:10 Alkaline Phosphatase 44 U/L (45-117) L D 07/20/21 06:10 Troponin I 0.03 ng/mL (0.0-0.045) 07/16/21 06:58 Home Medications: Docusate [Colace Cap*] 100 mg PO DAILY #30 cap 07/21/21 Losartan Potassium [Cozaar*] 50 mg PO BID #60 tablet 07/21/21 Metoprolol Tartrate 50 mg PO BID #60 tablet 07/21/21 Tamsulosin [Flomax*] 0.8 mg PO DAILY #60 cap 07/21/21 New Medications: Docusate [Colace Cap*] 100 mg PO DAILY #30 cap Losartan Potassium [Cozaar*] 50 mg PO BID #60 tablet Tamsulosin [Flomax*] 0.8 mg PO DAILY #60 cap Metoprolol Tartrate 50 mg PO BID #60 tablet Physician Discharge Instructions: Patient presented after a fall. Patient found to have left hip fracture. Patient required hospitalization. Patient was seen and evaluated by orthopedics. Surgical invention was recommended. Patient had left hip hemiarthroplasty. Postoperatively patient had acute encephalopathy with sundowning. This resolved. At discharge pain well controlled. Patient back to his baseline. Patient was evaluated for inpatient rehab. Patient agrees. Patient accepted. Patient will continue at inpatient rehab to continue therapy. Continue with DVT prophylaxisLovenox 30 mg daily sc for at least 14 days. Continue with physical therapy recommendations. Follow-up with orthopedics as directed. Patient also had bladder retention. Singleton catheter was placed. When the patient had some sundowning he pulled on the Singleton catheter. Hematuria was noted. Patient was started on Flomax and catheter replaced. Patient has done well. No further bleeding noted. Patient remains on Flomax. At discharge patient will continue with Flomax 0.8 mg daily. Consider voiding trial in inpatient rehab in the next several days. If the patient redevelops with retention then Singleton catheter will need to be placed with follow-up with urology. Patient found to have hypertension. This appears to be a new diagnosis. Blood pressures have been adjusted. At discharge patient will continue with metoprolol 50 mg 1 pill twice daily and losartan 50 mg 1 pill twice daily. Recommend to maintain blood pressure less than 130/80. If blood pressures remain above 140/90 further adjustment may be required. Recommend follow-up with PCP as an outpatient to further address. OK TO DC IV AND DC HOME FOLLOW-UP WITH PRIMARY CARE PROVIDER IN 1-2 WEEKS FOLLOW-UP WITH ORTHOPEDICS IN 1-2 WEEKS RETURN TO THE ER IF symptoms worsen CALL or TEXT DR. LEMUS AT [phone] IF ANY QUESTIONS REGARDING HOSPITAL STAY. PLEASE CALL THE FLOOR AT [phone] IF ANY MEDICATION OR NURSING QUESTIONS. Diet: AHA Activity: Fall precautions Followup: NONE,NONE [Primary Care Provider] - Time spent managing pt's care (in minutes): 55
[2021-07-21] MEDS: ENOXAPARIN 30 MG/0.3 ML SQ SCH (17:55)
[2021-07-21] MEDS: LOSARTAN POTASSIUM 50 MG TABLET PO SCH (20:11)
--- NOTE | 2021-07-22 06:02 | P.DS ---
Admission Date: 07/16/21 Discharge Date: 07/22/21 Primary Care Provider: unknown Disposition: TRANSFER TO INPATIENT REHAB Discharge Condition: GOOD Reason for Admission: Left hip fracture Consultations: Orthopedics-Dr. Mahmood Procedures: COVID: Negative Surgery: Date of Procedure: 07/16/2021 Surgeon: Saul Mahmood MD Dairy Cattle Farm Manager: Motion Picture Camera Operator: BRENDEN Moeller. Preoperative Diagnosis: Left femoral neck fracture. Postoperative Diagnosis: Left femoral neck fracture. Procedure Performed: Left hip hemiarthroplasty. Complications: None. Medical Problem List: Left hip fracture status post repair Acute encephalopathy secondary to sundowning Bladder retention Hematuria Hypertension Brief History of Present Illness: 86-year-old presented after a fall. He fell along the stairs. Patient found to have left-sided hip fracture. Patient was admitted for treatment. Hospital Course: Patient presented after a fall. Patient found to have left hip fracture. Patient required hospitalization. Patient was seen and evaluated by orthopedics. Surgical invention was recommended. Patient had left hip hemiarthroplasty. Postoperatively patient had acute encephalopathy with sundowning. This resolved. At discharge pain well controlled. Patient back to his baseline. Patient was evaluated for inpatient rehab. Patient agrees. Patient accepted. Patient will continue at inpatient rehab to continue therapy. Continue with DVT prophyla xisLovenox for at least 14 days. Continue with physical therapy recommendations. Follow-up with orthopedics as directed. Discharge to inpatient rehab was delayed due to insurance approval. Patient improved. Patient will continue with inpatient rehab. Patient also had bladder retention. Singleton catheter was placed. When the patient had some sundowning he pulled on the Singleton catheter. Hematuria was noted. Patient was started on Flomax and catheter replaced. Patient has done well. No further bleeding noted. Patient remains on Flomax. At discharge patient will continue with Flomax 0.8 mg daily. Consider voiding trial in inpatient rehab in the next several days. If the patient redevelops with retention then Singleton catheter will need to be placed with follow-up with urology. Patient found to have hypertension. This appears to be a new diagnosis. Blood pressures have been adjusted. At discharge patient will continue with metoprolol 50 mg 1 pill twice daily and losartan 50 mg 1 pill twice daily. Recommend to maintain blood pressure less than 130/80. If blood pressures remain above 140/90 further adjustment may be required. Recommend follow-up with PCP as an outpatient to further address. Vital Signs/Physical Exam: Temp Pulse Resp BP Pulse Ox 98 F 66 17 162/99 H 97 07/22/21 04:00 07/22/21 04:00 07/22/21 04:00 07/22/21 04:00 07/22/21 04:00 General: Alert, In no apparent distress, Oriented x3, Cooperative HEENT: Atraumatic Neck: Supple Respiratory: Clear to auscultation bilaterally, Normal air movement Cardiovascular: Normal pulses, Regular rate/rhythm Gastrointestinal: Normal bowel sounds Musculoskeletal: No erythema, No tenderness, No warmth Integumentary: No tenderness/swelling Neurological: Normal speech, Normal strength at 5/5 x4 extr, Normal tone, Normal affect Laboratory Data at Discharge: WBC 7.10 K/uL (4.3-10.9) D 07/21/21 05:11 Hgb 9.6 g/dL (13.6-17.9) L 07/21/21 05:11 Hct 27.2 % (39.6-49.0) L D 07/21/21 05:11 Plt Count 146 K/uL (152-406) L D 07/21/21 05:11 PT 10.3 SECONDS (9.5-12.5) 07/16/21 05:38 INR 0.90 07/16/21 05:38 APTT 23.6 SECONDS (24.3-36.9) L 07/16/21 05:38 Sodium 135 mmol/L (136-145) L 07/21/21 05:11 Potassium 3.9 mmol/L (3.5-5.1) 07/21/21 05:11 BUN 31 mg/dL (7-18) H 07/21/21 05:11 Creatinine 1.06 mg/dL (0.55-1.3) 07/21/21 05:11 Glucose 95 mg/dL (74-106) 07/21/21 05:11 Phosphorus 1.3 mg/dL (2.5-4.9) L 07/19/21 05:37 Magnesium 2.3 mg/dL (1.8-2.4) 07/21/21 05:11 Total Bilirubin 1.3 mg/dL (0.2-1.0) H 07/20/21 06:10 AST 36 U/L (15-37) 07/20/21 06:10 ALT 19 U/L (12-78) 07/20/21 06:10 Alkaline Phosphatase 44 U/L (45-117) L D 07/20/21 06:10 Troponin I 0.03 ng/mL (0.0-0.045) 07/16/21 06:58 Home Medications: Docusate [Colace Cap*] 100 mg PO DAILY #30 cap 07/21/21 Losartan Potassium [Cozaar*] 50 mg PO BID #60 tablet 07/21/21 Metoprolol Tartrate 50 mg PO BID #60 tablet 07/21/21 Tamsulosin [Flomax*] 0.8 mg PO DAILY #60 cap 07/21/21 New Medications: Docusate [Colace Cap*] 100 mg PO DAILY #30 cap Losartan Potassium [Cozaar*] 50 mg PO BID #60 tablet Tamsulosin [Flomax*] 0.8 mg PO DAILY #60 cap Metoprolol Tartrate 50 mg PO BID #60 tablet Physician Discharge Instructions: Patient presented after a fall. Patient found to have left hip fracture. Patient required hospitalization. Patient was seen and evaluated by orthopedics. Surgical invention was recommended. Patient had left hip hemiarthroplasty. Postoperatively patient had acute encephalopathy with sundowning. This resolved. At discharge pain well controlled. Patient back to his baseline. Patient was evaluated for inpatient rehab. Patient agrees. Patient accepted. Patient will continue at inpatient rehab to continue therapy. Continue with DVT prophylaxisLovenox 30 mg daily sc for at least 14 days. Continue with physical therapy recommendations. Follow-up with orthopedics as directed. Patient also had bladder retention. Singleton catheter was placed. When the patient had some sundowning he pulled on the Singleton catheter. Hematuria was noted. Patient was started on Flomax and catheter replaced. Patient has done well. No further bleeding noted. Patient remains on Flomax. At discharge patient will continue with Flomax 0.8 mg daily. Consider voiding trial in inpatient rehab in the next several days. If the patient redevelops with retention then Singleton catheter will need to be placed with follow-up with urology. Patient found to have hypertension. This appears to be a new diagnosis. Blood pressures have been adjusted. At discharge patient will continue with metoprolol 50 mg 1 pill twice daily and losartan 50 mg 1 pill twice daily. Recommend to maintain blood pressure less than 130/80. If blood pressures remain above 140/90 further adjustment may be required. Recommend follow-up with PCP as an outpatient to further address. OK TO DC IV AND DC HOME FOLLOW-UP WITH PRIMARY CARE PROVIDER IN 1-2 WEEKS FOLLOW-UP WITH ORTHOPEDICS IN 1-2 WEEKS RETURN TO THE ER IF symptoms worsen CALL or TEXT DR. LEMUS AT [phone] IF ANY QUESTIONS REGARDING HOSPITAL STAY. PLEASE CALL THE FLOOR AT [phone] IF ANY MEDICATION OR NURSING QUESTIONS. Diet: AHA Activity: Fall precautions Followup: NONE,NONE [Primary Care Provider] - Time spent managing pt's care (in minutes): 55
[2021-07-22] MEDS: METOPROLOL TAR 25 MG TAB PO SCH (06:50)
[2021-07-22 07:48] VITALS: BP 178/60; TEMP 98.8
[2021-07-22] MEDS: NACHLORIDE 0.45% 1,000 ML IV SCH (08:28)
[2021-07-22] MEDS: DOCUSATE NA 100 MG CAP PO SCH (08:28)
[2021-07-22] MEDS: LOSARTAN POTASSIUM 50 MG TABLET PO SCH (08:28)
[2021-07-22] MEDS: TAMSULOSIN 0.4 MG SR CAP PO SCH (08:28)
[2021-07-22] MEDS: JUVEN PACKET PO SCH (08:29)
[2021-07-22] MEDS: ENSURE HIGH PROTEIN 237 ML CAN PO SCH (08:29)
== END 2021-07-22 12:49 | DRG 522 ==
LOC: ER 03:02 → ERHOLD 06:41 → 2ND 11:58
PROVIDERS: ADMIT Hospitalist; ATTEND Family Medicine
PROC: 0SRS0JZ Replacement of Left Hip Joint, Femoral Surface with Synthetic Substitute, Open Approach (ICD-10-PCS; principal; 2021-07-16 17:00)
DX: S72.002A Fracture of unspecified part of neck of left femur, initial encounter for closed fracture (principal); F05 Delirium due to known physiological condition; G93.49 Other encephalopathy; R31.9 Hematuria, unspecified; R33.9 Retention of urine, unspecified; N28.9 Disorder of kidney and ureter, unspecified; I10 Essential (primary) hypertension; W10.8XXA Fall (on) (from) other stairs and steps, initial encounter; Z79.899 Other long term (current) drug therapy; Z20.822 Contact with and (suspected) exposure to COVID-19
CPT/HCPCS: 36415; 72170; 74018; 80048; 80053; 80076; 83735; 83880; 84100; 84484; 85025; 85610; 85730; 86850; 86900; 86901; 88305; 88311; 96374; 96375; 97110; 97116; 97161; 97530; 99284; J0360; J0610; J0690; J1100; J1650; J1940; J2250; J2270; J2405; J2704; J2710; J3010; J7030; J7040; J7120; U0003

== ENCOUNTER 2021-07-17 09:13 | Inpatient (IN) | payer OTHER ==
--- NOTE | 2021-07-22 12:04 | R.PREADM ---
PRE-ADMISSION SCREENING FORM SCREENING DATE AND TIME 07/22/2021 09:20 (DENTAL HYGIENE ADMINISTRATIVE ASSISTANT) ANTICIPATED REHAB ADMISSION DATE 07/24/2021 REFERRING FACILITY [facility] REFERRAL DATE AND TIME 07/16/2021 09:20 (DENTAL HYGIENE ADMINISTRATIVE ASSISTANT) REFERRAL ROOM# 201 ACUTE ADMIT DATE 07/16/2021 Previous Rehabilitation(s): No. 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 Mike Stallings M.D. MR# [id number] NAME TEODORA GRANADOS ADDRESS [address] PHONE [facility] [id number] DATE OF 1935 AGE 86 SSN# [id number] GENDER male MARITAL STATUS PREF. LANGUAGE (IF NON-DANISH) Amharic ADMIT FROM 02 - [facility] PRE-HOSPITAL LIVING SETTING 01 - Home (private home/apt. board/care, assisted living, prison, transitional living) HOME TYPE AND DETAILS Type of home: single family house # of steps to enter the residence: 0 # of levels in the residence:2 # of steps within the residence: 8 PRE-HOSPITAL LIVING WITH Family/Relatives FAMILY SUPPORT Yes PRIMARY FAMILY CONTACT NAME TRACY GRANADOS PRIMARY FAMILY CONTACT PHONE PRIMARY FAMILY CONTACT RELATIONSHIP Brother PHONE PRIMARY FAMILY CONTACT ON ADM.? no IS PRIMARY FAMILY CONTACT AUTH. REP.? no 1ST EMERGENCY CONTACT TRACY GRANADOS 1ST CONTACT PHONE 1ST CONTACT RELATIONSHIP Brother PHONE 1ST CONTACT ON ADM. no IS 1ST CONTACT AUTH. REP.? no PHONE 2ND CONTACT ON ADM.? no PATIENT EMPLOYMENT STATUS Retired (for age) PATIENT EMPLOYER No Employer PAYOR INFORMATION: 1ST PAYOR NAME Medicare 1ST PAYOR PHONE 1ST PAYOR INJURY/ILLNESS DUE TO ACCIDENT? No ANOTHER LIBERTARIAN RESPONSIBLE? No PRIMARY REHAB/ACUTE DIAGNOSIS: LEFT HIP FRACTURE ONSET DATE 07/16/2021 REHAB IMPAIRMENT CATEGORY (HOMA): 07 Fracture of LE (FracLE) MEETS 60% rule AFFECTED EXTREMITIES: LLE PRIMARY DIAGNOSIS-RELATED SURGERIES: left hip hemiarthroplasty 07/16/2021 INTERVENTIONS: - Hypertension Blood pressure will be monitored regularly and medications administer per MD to manage effective bloo d pressure. RISK FOR COMPLICATIONS: - Falls Educated pt on fall prevention strategies to reduce/eliminate fall risk Patient will be evaluated for Fall Precautions and will be placed on Fall Precautions as indicated pe r protocol. - DVT PTT and INR will be monitored to effectively mitigate risk for development of DVT or PE while here. Medications will be administered as per MD - CVA pt has severely elevated BP and requires medical monitoring to manage and reduce reisk for CVA. - Pain Clinical staff will assess patient's pain level every shift per protocol to monitor for pain manageme nt effectiveness Educate patient on pain management strategies Medications will be given and the pain level reassessed. Clinical Staff may employ other methods such as: massage, distraction, decrease stimulus, etc. as needed - Hypertension Blood pressure will be monitored regularly and medications administer per MD to manage effective bloo d pressure. - Skin Breakdown Nursing will assess skin daily using assessment tool and will place on Skin Breakdown Precautions as Indicated per protocol - Hip Dislocation pt will be educated as to posterolateral hip precautions following recent surgery to ensure proper he aling and prevention of post-op complications. SUMMARY OF ACUTE HOSPITALIZATION: Pt. is a 86 yo Right-handed male. On 07/16/2021 he was admitted to [facility] with diagnosis LEFT HIP FRACTURE. His impairment category is Orthopaedic Disorders 08 - Unilateral Hip Fracture (08.11). Pre-morbidly, Pt. was independent/mod-I in Locomotion, Safety Awareness, Balance, and Social Cognitio n; and he had good Transfers Control, Self-Care, Sphincter Control, Endurance, and Communication. Currently, he has deficits of Locomotion, Safety Awareness, Balance, Social Cognition, Transfers Cont rol, Sphincter Control, Communication, Self-Care, and Endurance. Pt. is now referred to [facility] for acute in-patient rehabilitation in order to maximize patient's functional independence in activities of daily living, strength, ROM, and mobi lity. Patient has realistic goal of being discharged at assistance level 7-Ind to reside at Home with Fami ly/Relatives. PAST MEDICAL HISTORY HTN PAST SURGICAL HISTORY: Appendectomy MEDICATION ALLERGIES: No Known Drug Allergies (NKDA) ENVIRONMENTAL ALLERGIES: - Substance Allergies None Known - Other Allergies None Known CODE STATUS: Not Available WEIGHT/HEIGHT/BMI: WEIGHT 125 lbs HEIGHT 5' 7" BMI 19.6 DIET: - Diet Type Regular - Diet - Solid Texture Regular - Diet - Liquid Texture Regular - Tube Feed N/A REVIEW OF SYSTEMS: - Gen Alert and awake Lying in bed No apparent distress Oriented to: person, time, and place - Vital Signs Temperature: 98.8 F SBP/DBP: 196/79 Pulse:78 Resp: 16 Vital signs stable, afebrile - CVS RRR VITAL SIGNS Temperature: 98.8 F SBP/DBP: 196/79 Pulse: 78 Resp: 16 Vital signs stable, afebrile MEDICATIONS/TREATMENT: Other- See attached MAR (Medication Administration Record). CURRENT SPHINCTER CONTROL: Pre-hospital bladder status: unspecified # of bladder accidents in the last 7 days prior to screenin Pre-hospital bowel status: unspecified # of bowel accidents in the last 7 days prior to screenin Last Bowel Movement Date: 07/22/2021 CURRENT LOCOMOTION STATUS: distance walked 250 feet WITH ROLLING WALKER DETAILED CURRENT FUNCTIONAL STATUS: - Bladder accident frequency: 7-Ind - No accidents in the past 7 days - Bowel accident frequency: 7-Ind - No accidents in the past 7 days - Walking score based on distance walked: 0(N/A) score based on distance walked: 3(>=150ft) - Wheelchair score based on distance traveled: 0(N/A) QI SCORES: - Self-Care A. Eating 03-Partial/moderate assistance B. Oral hygiene 03-Partial/moderate assistance C. Toileting hygiene 88-Not attempted due to medical condition or safety concerns E. Shower/bathe self 88-Not attempted due to medical condition or safety concerns F. Upper body dressing 03-Partial/moderate assistance G. Lower body dressing 88-Not attempted due to medical condition or safety concerns H. Putting on/taking off footwear 88-Not attempted due to medical condition or safety concerns - Mobility A. Roll left and right 04-Supervision or touching assistance B. Sit to lying 04-Supervision or touching assistance C. Lying to sitting on side of bed 04-Supervision or touching assistance D. Sit to stand 04-Supervision or touching assistance E. Chair/cyv-ey-qcczu transfer 04-Supervision or touching assistance F. Toilet transfer 04-Supervision or touching assistance G. Car transfer 10-Not attempted due to environmental limitations I. Walk 10 feet 04-Supervision or touching assistance J. Walk 50 feet with two turns 04-Supervision or touching assistance K. Walk 150 feet 04-Supervision or touching assistance L. Walking 10 feet on uneven surfaces 88-Not attempted due to medical condition or safety concerns M. 1 step (curb) 88-Not attempted due to medical condition or safety concerns N. 4 steps 88-Not attempted due to medical condition or safety concerns O. 12 steps 88-Not attempted due to medical condition or safety concerns P. Picking up object 88-Not attempted due to medical condition or safety concerns R. Wheel 50 feet with two turns 09-Not applicable S. Wheel 150 feet 09-Not applicable - Bladder and Bowel Bladder continence Bowel continence - Endurance Fair - Balance Fair - Safety Awareness Fair CURRENT FUNC. DEFICITS: Self-Care, Mobility, Endurance, Balance, and Safety Awareness CURRENT / PREVIOUS ASSISTIVE DEVICES: Rolling Walker HISTORY OF FALLS. HAS THE PATIENT HAD TWO OR MORE FALLS IN THE PAST YEAR OR ANY FALL WITH INJURY IN T HE PAST YEAR?: Yes PRIOR SURGERY. DID THE PATIENT HAVE MAJOR SURGERY DURING THE 100 DAYS PRIOR TO ADMISSION?: Yes THERAPY NOTES FROM ACUTE CARE: Attached. SPECIAL NEEDS: - Safety Concerns Skin breakdown precautions needed due to skin breakdown risk PRECAUTIONS: - Posterior Hip Precaution No adduction across midline No external rotation No hip flexion >90 degrees No internal rotation No wheel chair propulsion - Weight Bearing Precaution WBAT left LE PATIENT NEEDS ACTIVE AND ONGOING THERAPEUTIC INTERVENTION OF MULTIPLE THERAPY DISCIPLINES, INCLUDING: - Dietary and Nutrition Adequate Nutrition. Nutritional Education. Nutritional Supplements. - Occupational Therapy Cognitive Retraining. Evaluate and Treat. ADL Training. Household Tasks. Patient/Family Education. Sa fety Awareness. UE Strengthening. Adaptive Equipment. Transfer Training. Visual Perceptual Training. - Speech Therapy Cognitive Training. Expressive Language Skills. Memory Strategies. Receptive Language Skills. Speech Intelligibility Training. - Physical Therapy Safety Awareness. Evaluate and Treat. Patient/Family Education. LE Strengthening. Balance Training. T ransfer Training. Mobility Training. LE ROM. PATIENT NEEDS CLOSE MEDICAL SUPERVISION BY A REHABILITATION PHYSICIAN FOR: Coordination of Treatment Team Pain Management Medical and Co-Morbidity Management DVT Management PATIENT REQUIRES 24X7 REHAB NURSING FOR MEDICAL AND FUNCTIONAL MGT. OF THE FOLLOWING DEFICITS: Disease Management Medication Management Patient/Family Education Providing Safe Environment PATIENT REQUIRES INTENSIVE, COORDINATED INTERDISCIPLINARY APPROACH TO REHAB: Arranging Home Equipment/Services Discharge Planning Family Intervention/Training Central Supply Manager/Case Management PATIENT REHAB POTENTIAL: Kal GRANADOS is able and expected to receive 3 hours of individualized therapy daily on at least 5 of every 7 days Kal GRANADOS's prognosis for significant practical improvement within a reasonable period of time appe ars Good Expected level of measurable improvement will be of a practical value to Kal GRANADOS's functional cap acity or adaptations to impairments Has a viable Discharge Plan Medically appropriate; condition is sufficiently stable to participate in intensive rehab program DISCHARGE PLAN: - Estimated Length of Stay (days) 14. - Consensus on plan Discharge plan has been discussed with primary caregiver. Patient/Family is in agreement with the janett n. Primary caregiver is in agreement with the plan. - Patient/Family Goals Return home independently. - Planned Living Setting Upon Discharge Home, to live with Family/Relatives. Transitional Living. RECOMMENDED CARE LEVEL: IRF RECOMMENDATION DETAILS: Recommended Admission to Comprehensive Rehabilitation Program to Increase Functional [place] SCREENER'S COMPLETENESS CONFIRMATION: - Screening Confirmation The patient data collection on this preadmission screening form is finished PHYSICIANS REVIEW AND ADMISSION DETERMINATION Admit - Based on my review of the Pre-Admission Screening results, in my medical judgment and experie nce, I concur with the findings and recommend admission to [facility], as this patient requires an IRF level of care. SIGNATURE PANEL: Rn Hospice - [electronically] signed by Suraj Sorto PT on 07/22/2021 at 10:45 (DENTAL HYGIENE ADMINISTRATIVE ASSISTANT) Rn Hospice - [electronically] signed by Suraj Sorto PT on 07/22/2021 at 11:26 (DENTAL HYGIENE ADMINISTRATIVE ASSISTANT) Physician Reviewer - [electronically] signed by Dr. Mike Stallings M.D. on 07/22/2021 at 12:03 (DENTAL HYGIENE ADMINISTRATIVE ASSISTANT )
[2021-07-22] MEDS ORDERED: DOCUSATE NA 100 MG CAP PO PRN (14:52)
[2021-07-22] MEDS ORDERED: BISACODYL 10 MG RECTAL SUPP PR PRN (14:59)
[2021-07-22] MEDS ORDERED: ONDANSETRON 4 MG (ODT) TAB PO PRN (14:59)
[2021-07-22] MEDS: ENOXAPARIN 30 MG/0.3 ML SQ SCH (16:34)
--- NOTE | 2021-07-22 16:55 | R.HP ---
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 board/care, assisted living, half-way, transitional living) PRE-HOSPITAL LIVING WITH Family/Relatives ENCOUNTER PHYSICIAN: Dr. Mike Stallings M.D. 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 is a 86 yo Right-handed male. On 07/16/2021 he was admitted to [facility] with diagnosis LEFT HIP FRACTURE. His impairment category is Orthopaedic Disorders 08 - Unilateral Hip Fracture (08.11). Pre-morbidly, Pt. was independent/mod-I in Locomotion, Safety Awareness, Balance, and Social Cognitio n; and he had good Transfers Control, Self-Care, Sphincter Control, Endurance, and Communication. Currently, he has deficits of Locomotion, Safety Awareness, Balance, Social Cognition, Transfers Cont rol, Sphincter Control, Communication, Self-Care, and Endurance. Pt. is now referred to [facility] for acute in-patient rehabilitation in order to maximize patient's functional independence in activities of daily living, strength, ROM, and mobi lity. Patient has realistic goal of being discharged at assistance level 7-Ind to reside at Home with Fami ly/Relatives. MEDICATION ALLERGIES: No Known Drug Allergies (NKDA) ENVIRONMENTAL ALLERGIES: - Substance Allergies None Known - Other Allergies None Known PAST MEDICAL HISTORY: HTN PAST SURGICAL HISTORY: Appendectomy SOCIAL HISTORY: - Home Living Family/Relatives REVIEW OF SYSTEMS: - Gen No Chills Fatigue No Fever - Eyes No Double Vision No itchiness - ENMT No Difficulty Swallowing - CVS No Chest Discomfort No Chest Pain Fatigue No Weight Gain - Resp No Cough No Shortness of Breath - GI Continent No Abdominal Pain Constipation No Diarrhea - Continent No Kidney Pain No Painful Urination No Urinary Urgency - MSK No Joint Pain Muscle Cramps Stiffness - Skin No Itching No Rash No Suspicious Lesions - Neuro No Coordination Difficulty No Difficulty with Concentration No Memory Loss No Seizures Weakness - Psych No Anxiety No Depression No HIV Exposure No Persistent Infections No Seasonal Allergies - Endo No Cold/Heat Intolerance No Excessive Hunger No Excessive Thirst No Excessive Urination PHYSICAL EXAM - Gen Alert and awake Lying in bed No apparent distress Oriented to: person, time, and place - Skin No breakdown No abnormalities - Eyes No abnormalities - ENMT No abnormalities - Neck No abnormalities - CVS RRR - Resp No wheezing - Abd Soft - GI Non distended Deferred - No abnormalities - Ext Left hip surgical site has good hemostasis. - MSK 4+/5 weakness in left lower extremity - Neuro 4/5 strength left lower extremity. - Psych No abnormalities VITAL SIGNS Temperature: 98.0 F SBP/DBP: 143/50 Pulse: 73 Resp: 16 NURSING: - Shower allowing shower - Skin care per protocol PRECAUTIONS: - Posterior Hip Precaution No adduction across midline No external rotation No hip flexion >90 degrees No internal rotation No wheel chair propulsion - Weight Bearing Precaution WBAT left LE ACTIVITIES OOB only with supervision QI SCORES: - Self-Care A. Eating 03-Partial/moderate assistance B. Oral hygiene 03-Partial/moderate assistance C. Toileting hygiene 88-Not attempted due to medical condition or safety concerns E. Shower/bathe self 88-Not attempted due to medical condition or safety concerns F. Upper body dressing 03-Partial/moderate assistance G. Lower body dressing 88-Not attempted due to medical condition or safety concerns H. Putting on/taking off footwear 88-Not attempted due to medical condition or safety concerns - Mobility A. Roll left and right 04-Supervision or touching assistance B. Sit to lying 04-Supervision or touching assistance C. Lying to sitting on side of bed 04-Supervision or touching assistance D. Sit to stand 04-Supervision or touching assistance E. Chair/kpo-lt-uayni transfer 04-Supervision or touching assistance F. Toilet transfer 04-Supervision or touching assistance G. Car transfer 10-Not attempted due to environmental limitations I. Walk 10 feet 04-Supervision or touching assistance J. Walk 50 feet with two turns 04-Supervision or touching assistance K. Walk 150 feet 04-Supervision or touching assistance L. Walking 10 feet on uneven surfaces 88-Not attempted due to medical condition or safety concerns M. 1 step (curb) 88-Not attempted due to medical condition or safety concerns N. 4 steps 88-Not attempted due to medical condition or safety concerns O. 12 steps 88-Not attempted due to medical condition or safety concerns P. Picking up object 88-Not attempted due to medical condition or safety concerns R. Wheel 50 feet with two turns 09-Not applicable S. Wheel 150 feet 09-Not applicable - Bladder and Bowel Bladder continence Bowel continence - Endurance Fair - Balance Fair - Safety Awareness Fair CURRENT FUNC. DEFICITS: Self-Care, Mobility, Endurance, Balance, and Safety Awareness MEDICATIONS: - Other See attached MAR (Medication Administration Record) ASSESSMENT: Pt. is a 86 yo Right-handed male.On 07/16/2021 he was admitted to [facility] with diagno sis LEFT HIP FRACTURE.His impairment category is Orthopaedic Disorders 08 - Unilateral Hip Fracture (08.11).Pre-morbidly, Pt. was independent/mod-I in Locomotion, Safety Awareness, Balance, and Social Cognition; and he had good Transfers Control, Self-Care, Sphincter Control, Endurance, and Communicat ion.Currently, he has deficits of Locomotion, Safety Awareness, Balance, Social Cognition, Transfers Control, Sphincter Control, Communication, Self-Care, and Endurance.Pt. is now referred to [facility] for acute in-patient rehabilitation in order to maximize patient's functional independence in activities of daily living, strength, ROM, and mobility.- Rehab Goal Patient has realistic goal of being discharged at assistance level 7-Ind to reside at Home with Fami ly/Relatives. - Physical Therapy Decreased range of motion - to improve, our physical therapists will perform initial evaluation of pt 's status upon admission and devise an individualized program for increasing patient's Range of Motio n. Gait dysfunction - to improve, our physical therapists will perform initial evaluation of pt's status upon admission and devise an individualized program for Gait Training, and Wheel Chair mobility Inability to transfer - to improve, our physical therapists will perform initial evaluation of pt's s tatus upon admission and devise an individualized program for Bed mobility Need for home safety evaluation - to improve, our physical therapists will perform initial evaluation of pt's status upon admission and devise an individualized program for Home Evaluation Need in caregiver upon discharge - to improve, our physical therapists will perform initial evaluatio n of pt's status upon admission and devise an individualized program for Caregiver Training New precaution - to improve, our physical therapists will perform initial evaluation of pt's status u vanessa admission and devise an individualized program for Patient precaution education Poor balance - to improve, our physical therapists will perform initial evaluation of pt's status upo n admission and devise an individualized program for Balance Training Poor endurance - to improve, our physical therapists will perform initial evaluation of pt's status u vanessa admission and devise an individualized program for Endurance Training Weakness - to improve, our physical therapists will perform initial evaluation of pt's status upon ad mission and devise an individualized program for Aquatic Therapy, Neuromuscular Reeducation, and Stre ngthening Achieving independence - to improve, our physical therapists will perform initial evaluation of pt's status upon admission and devise an individualized program for Community Reintegration Activities - Occupational Therapy ADL deficits - to improve, our occupation therapists will perform initial evaluation of pt's status u vanessa admission and devise an individualized program for Bathing, Bed mobility, Community Reintegration , Cooking, Dressing, Eating, Fine Motor Skills, Grooming, Homemaking, Kitchen Mobility, Laundry, Jessi ent Education, Safety Awareness, Splinting - Positioning, Transfers(Toilet, Tub, Shower), and Wheel C hair Management Cognitive deficits - to improve, our occupation therapists will perform initial evaluation of pt's st atus upon admission and devise an individualized program for Cognition - orientation Need for care provider - to improve, our occupation therapists will perform initial evaluation of pt's s tatus upon admission and devise an individualized program for Caregiver Training Weakness - to improve, our occupation therapists will perform initial evaluation of pt's status upon admission and devise an individualized program for Aquatic Therapy, Balance, Endurance, UE ROM, and U E strengthening MEDICAL PLAN: - Anterior Hip Precaution No abduction No active extension No adduction across midline No external rotation No hip flexion >90 degrees No internal rotation - Diet - Liquid Texture Start Regular - Tube Feed Start N/A - Diet Type Start Regular - Posterior Hip Precaution No adduction across midline No external rotation No hip flexion >90 degrees No internal rotation No wheel chair propulsion - Weight Bearing Precaution WBAT left LE - Skin care per protocol - Other See attached MAR (Medication Administration Record) - Diet - Solid Texture Regular - Shower shower DISCHARGE PLAN: - Estimated Length of Stay (days) 14. - Consensus on plan Discharge plan has been discussed with primary caregiver. Patient/Family is in agreement with the janett n. Primary caregiver is in agreement with the plan. - Patient/Family Goals Return home independently. - Planned Living Setting Upon Discharge Home, to live with Family/Relatives. Transitional Living. 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
--- NOTE | 2021-07-22 16:58 | PAPE ---
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 Mike Stallings M.D. ADMISSION DIAGNOSIS: LEFT HIP FRACTURE ONSET DATE 07/16/2021 POST-ADMISSION FUNCTIONAL/MEDICAL STATUS: - Bladder Same accident frequency: 7-Ind - No accidents in the past 7 days - Bowel Same accident frequency: 7-Ind - No accidents in the past 7 days - Walking Same score based on distance walked: 0(N/A) Same score based on distance walked: 3(>=150ft) - Wheelchair Same score based on distance traveled: 0(N/A) STATUS CHANGE EVALUATION: No change in Functional or Medical Status is identified compared with Pre-Admission screening. PATIENT NEEDS CLOSE MEDICAL SUPERVISION BY A REHABILITATION PHYSICIAN FOR: Coordination of Treatment Team Pain Management Medical and Co-Morbidity Management DVT Management PATIENT REQUIRES 24X7 REHAB NURSING FOR MEDICAL AND FUNCTIONAL MGT. OF THE FOLLOWING DEFICITS: Disease Management Medication Management Patient/Family Education Providing Safe Environment PATIENT REQUIRES INTENSIVE, COORDINATED INTERDISCIPLINARY APPROACH TO REHAB: Arranging Home Equipment/Services Discharge Planning Family Intervention/Training Special Education Coordinator/Case Management LIST OF IDENTIFIED AND POTENTIAL PROBLEMS: Alteration in leisure activities Bladder, Incontinence Bowel, Incontinence Infection, Actual or Potential Mobility Impaired Pain, Alteration in Comfort Self Care Deficit Skin Integrity, Actual or Potential Urinary Tract Infection (UTI), Actual or Potential RISK FOR COMPLICATIONS - Falls Educated pt on fall prevention strategies to reduce/eliminate fall risk. Patient will be evaluated fo r Fall Precautions and will be placed on Fall Precautions as indicated per protocol. - DVT PTT and INR will be monitored to effectively mitigate risk for development of DVT or PE while here. M edications will be administered as per MD. - CVA pt has severely elevated BP and requires medical monitoring to manage and reduce reisk for CVA. - Pain Clinical staff will assess patient's pain level every shift per protocol to monitor for pain manageme nt effectiveness. Educate patient on pain management strategies. Medications will be given and the pa in level reassessed. Clinical Staff may employ other methods such as: massage, distraction, decrease stimulus, etc. as needed. - Hypertension Blood pressure will be monitored regularly and medications administer per MD to manage effective bloo d pressure. - Skin Breakdown Nursing will assess skin daily using assessment tool and will place on Skin Breakdown Precautions as Indicated per protocol. - Hip Dislocation pt will be educated as to posterolateral hip precautions following recent surgery to ensure proper he aling and prevention of post-op complications. INTERVENTIONS - Hypertension Blood pressure will be monitored regularly and medications administer per MD to manage effective bloo d pressure. PATIENT COULD BE AT RISK FOR COMPLICATIONS FROM ADVERSE MEDICAL CONDITIONS DUE TO HIS/HER COMORBIDITI ES AND THE RIGORS OF THE INTENSIVE REHABILLITATION PROGRAM. METHODS OR INTERVENTIONS TO AVOID COMPLIC ATIONS INCLUDE: - Deep Vein Thrombosis (DVT) Prophylaxis therapy for prevention . Sequential Compression Device (SCD). TE D Hose. - Infection Clinical staff to assess and manage the signs and symptoms of infection including fever, redness, war mth, etc. - Urinary Tract Infection - Falls Patient will be evaluated for Fall Precautions and will be placed on Fall Precautions as indicated pe r protocol. - Skin Breakdown Nursing will assess skin daily using assessment tool and will place on Skin Breakdown Precautions as indicated per protocol. - Pain Clinical staff may employ non-medication methods such as massage, distraction, decrease stimulus, etc . as needed. Clinical staff will assess patient's pain level every shift per protocol to assess and e nsure pain management effectiveness. Medications will be given and the pain level re-assessed. PRELIMINARY PLAN OF CARE: - Physical Therapy Patient needs Physical Therapy for a daily minimum of 1.5 hours at least 5 out of 7 days, to improve: Mobility, Strengthening, Transfers, Stretching, ROM, Endurance, Ability to manage stairs, Gait, and Balance. - Speech Therapy Patient needs Speech Therapy for a daily minimum of 0.5 hours at least 5 out of 7 days, to improve: S wallowing, Cognition, Language Skills, and Compensatory Strategies. - Rehabilitation Nursing Patient requires 24x7 Rehabilitation Nursing for: Pain Issues, Identifying and preventing risk factor s, Monitoring and reporting current medical conditions, Assisting with ambulation and transfer, Roosevelt ting with all ADL-s, Teaching patients about disease process and medications, Family teaching, Provid ing safe environment, Bowel and Bladder Issues, Skin Integrity, and Medication Management. Patient needs Special Education Coordinator and/or Case Management for: Discharge Planning, Arranging Home Equipmen t or Services, and Family Interventions. - Dietary and Nutrition Services Patient needs Dietary and Nutrition Services for: Adequate Nutrition, Nutritional Supplements, and Nu tritional Education. - Occupational Therapy Patient needs Occupational Therapy for a daily minimum of 1.5 hours at least 5 out of 7 days, to impr ove Activities of Daily Living, including: Eating, Grooming, Bathing, Dressing, Toileting, Toilet Tra nsfers, Community Reintegration, Higher functional activities, Adaptive Equipment, Splinting, Househo ld Tasks, and Other activities as determined. QI SCORES: - Self-Care A. Eating 03-Partial/moderate assistance B. Oral hygiene 03-Partial/moderate assistance C. Toileting hygiene 88-Not attempted due to medical condition or safety concerns E. Shower/bathe self 88-Not attempted due to medical condition or safety concerns F. Upper body dressing 03-Partial/moderate assistance G. Lower body dressing 88-Not attempted due to medical condition or safety concerns H. Putting on/taking off footwear 88-Not attempted due to medical condition or safety concerns - Mobility A. Roll left and right 04-Supervision or touching assistance B. Sit to lying 04-Supervision or touching assistance C. Lying to sitting on side of bed 04-Supervision or touching assistance D. Sit to stand 04-Supervision or touching assistance E. Chair/ean-ut-pnbyo transfer 04-Supervision or touching assistance F. Toilet transfer 04-Supervision or touching assistance G. Car transfer 10-Not attempted due to environmental limitations I. Walk 10 feet 04-Supervision or touching assistance J. Walk 50 feet with two turns 04-Supervision or touching assistance K. Walk 150 feet 04-Supervision or touching assistance L. Walking 10 feet on uneven surfaces 88-Not attempted due to medical condition or safety concerns M. 1 step (curb) 88-Not attempted due to medical condition or safety concerns N. 4 steps 88-Not attempted due to medical condition or safety concerns O. 12 steps 88-Not attempted due to medical condition or safety concerns P. Picking up object 88-Not attempted due to medical condition or safety concerns R. Wheel 50 feet with two turns 09-Not applicable S. Wheel 150 feet 09-Not applicable - Bladder and Bowel Bladder continence Bowel continence - Endurance Fair - Balance Fair - Safety Awareness Fair POTENTIAL FUNCTIONAL GOALS FOR PATIENT TO ACHIEVE BY DISCHARGE: - Safety Precaution Patient will remain free from falls or injury at time of discharge. - Bed Mobility Patient will perform bed mobility at 4-Lizz level of assistance. - Transfers Patient will complete transfers from bed to chair at 4-Lizz level of assistance. - Mobility Patient will ambulate 150 ft with 4-Lizz level of assistance with RW. PATIENT REHAB POTENTIAL Kal GRANADOS is able and expected to receive 3 hours of individualized therapy daily on at least 5 of every 7 days Kal GRANADOS's prognosis for significant practical improvement within a reasonable period of time appe ars Good Expected level of measurable improvement will be of a practical value to Kal GRANADOS's functional cap acity or adaptations to impairments Has a viable Discharge Plan Medically appropriate; condition is sufficiently stable to participate in intensive rehab program DISCHARGE PLAN: - Estimated Length of Stay (days) 14. - Consensus on plan Discharge plan has been discussed with primary caregiver. Patient/Family is in agreement with the janett n. Primary caregiver is in agreement with the plan. - Patient/Family Goals Return home independently. - Planned Living Setting Upon Discharge Home, to live with Family/Relatives. Transitional Living. CONCLUSION ON REHABILITATION NECESSITY: I have evaluated patient's pre-admission functional status and, comparing it to the patient's post-ad mission functional status now, I conclude that the pre-admission assessment was accurate. Patient's c ondition on admission supports the medical necessity of admission to [facility]. It is safe to proceed with patient's therapy program. 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
[2021-07-22] MEDS: METOPROLOL TAR 50 MG TAB PO SCH (19:45)
[2021-07-22] MEDS: ENSURE HIGH PROTEIN 237 ML CAN PO SCH ×2 (19:45→19:46)
[2021-07-22] MEDS: DOCUSATE NA/SENNA CONC 1 TAB PO PRN (19:45)
[2021-07-22] MEDS: LOSARTAN POTASSIUM 50 MG TABLET PO SCH (19:45)
[2021-07-23 00:25] LABS: Urine Appearance CLOUDY (Clear); Urine Blood 3+ (Negative); Urine Color DK YELLOW (Yellow); Urine Glucose NEGATIVE (Negative); Urine Protein 1+ (Negative); Urine Specific Gravity 1.025 (1.005-1.030); Urine pH 5.5 (5.0-7.0)
[2021-07-23 00:31] LABS: Urine Bilirubin NEGATIVE (Negative)
[2021-07-23 01:05] LABS: Urine Bacteria 20-50 /HPF (NONE SEEN); Urine RBC 20-50 /HPF (NONE SEEN)
[2021-07-23 04:58] LABS: Absolute Lymphocytes (CBC) 0.4 K/uL (0.7-4.9); Hematocrit 27.9 % (39.6-49.0); Lymphocytes % 6.1 % (15.3-44.8); MPV 9.3 fL (7.6-11.3); RBC Red Blood Cell Count 2.94 M/uL (4.33-5.43)
[2021-07-23 05:26] LABS: Albumin 1.9 g/dL (3.4-5.0); Magnesium 2.4 mg/dL (1.8-2.4); Potassium 3.8 mmol/L (3.5-5.1); Prealbumin 6.7 mg/dL (20-40)
[2021-07-23] MEDS: TAMSULOSIN 0.4 MG SR CAP PO SCH (07:21)
[2021-07-23] MEDS: LOSARTAN POTASSIUM 50 MG TABLET PO SCH ×2 (07:23→19:18)
[2021-07-23] MEDS: ACETAMINOPHEN 500 MG TAB PO PRN (07:23)
[2021-07-23] MEDS: ENSURE HIGH PROTEIN 237 ML CAN PO SCH ×2 (08:00→19:18)
[2021-07-23 08:28] LABS: Blood Morphology Comment NOT SEEN (NOT SEEN); Platelet Estimate ADEQ
[2021-07-23] MEDS: POLYETHYL GLY 3350 17 GM/DOSE PO SCH (08:31)
[2021-07-23] MEDS: METOPROLOL TAR 50 MG TAB PO SCH ×2 (08:55→19:18)
[2021-07-23] MEDS: FERROUS SULFATE 325 MG TAB PO SCH ×2 (08:56→19:18)
[2021-07-23] MEDS ORDERED: NACHLORIDE 0.45% 1,000 ML IV SCH (14:00)
[2021-07-23] MEDS: DULOXETINE 20 MG CAP PO SCH (14:18)
[2021-07-23] MEDS: MEGESTROL 40 MG TAB PO SCH ×3 (14:19→19:28)
[2021-07-23] MEDS: ENOXAPARIN 30 MG/0.3 ML SQ SCH (16:13)
--- NOTE | 2021-07-23 17:07 | R.PN ---
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 Pt denied any Shortness of Breath. WBC 6.0, neutrophils 85.9, Hgb 9.5, prealbumin 6.7,Ca 7.7, glucose 119, UA esterase 1+, ketones 2+, W BC 5-10, COVID-19 is negative. Ambulated 780' with rolling walker and standby assistance. Wheelchair mobility 100' with modified ind ependence, and down 5 steps with contact guard assistance. VITAL SIGNS Temperature: 99.5 F SBP/DBP: 147/63 Pulse: 58 Resp: 16 MEDICATION ALLERGIES: No Known Drug Allergies (NKDA) ENVIRONMENTAL ALLERGIES: - Substance Allergies None Known - Other Allergies None Known NURSING: - Shower allowing shower - Skin care per protocol PRECAUTIONS: - Posterior Hip Precaution No adduction across midline No external rotation No hip flexion >90 degrees No internal rotation No wheel chair propulsion - Weight Bearing Precaution WBAT left LE ACTIVITIES OOB only with supervision THERAPIES: - Dietary and Nutrition Adequate Nutrition. Nutritional Education. Nutritional Supplements. - Occupational Therapy Cognitive Retraining. Evaluate and Treat. ADL Training. Household Tasks. Patient/Family Education. Sa fety Awareness. UE Strengthening. Adaptive Equipment. Transfer Training. Visual Perceptual Training. - Speech Therapy Cognitive Training. Expressive Language Skills. Memory Strategies. Receptive Language Skills. Speech Intelligibility Training. - Physical Therapy Safety Awareness. Evaluate and Treat. Patient/Family Education. LE Strengthening. Balance Training. T ransfer Training. Mobility Training. LE ROM. PHYSICAL EXAM - Gen Alert and awake Lying in bed No apparent distress Oriented to: person, time, and place - Skin No breakdown No abnormalities - Eyes No abnormalities - ENMT No abnormalities - Neck No abnormalities - CVS RRR - Resp No wheezing - Abd Soft - GI Non distended Deferred - No abnormalities - Ext Left hip surgical site has good hemostasis. - MSK 4+/5 weakness in left lower extremity - Neuro 4/5 strength left lower extremity. - Psych No abnormalities ASSESSMENT: Pt. is a 86 yo Right-handed male.On 07/16/2021 he was admitted to [facility] with diagno sis LEFT HIP FRACTURE.His impairment category is Orthopaedic Disorders 08 - Unilateral Hip Fracture (02.26).Pre-morbidly, Pt. was independent/mod-I in Locomotion, Safety Awareness, Balance, and Social Cognition; and he had good Transfers Control, Self-Care, Sphincter Control, Endurance, and Communicat ion.Currently, he has deficits of Locomotion, Safety Awareness, Balance, Social Cognition, Transfers Control, Sphincter Control, Communication, Self-Care, and Endurance.Pt. is now referred to [facility] for acute in-patient rehabilitation in order to maximize patient's functional independence in activities of daily living, strength, ROM, and mobility.- Rehab Goal Patient has realistic goal of being discharged at assistance level 7-Ind to reside at Home with Fami ly/Relatives. MDM/PLAN: - Physical Therapy Decreased range of motion - to improve, our physical therapists will perform initial evaluation of p t's status upon admission and devise an individualized program for increasing patient's Range of [place] on. Gait dysfunction - to improve, our physical therapists will perform initial evaluation of pt's statu s upon admission and devise an individualized program for Gait Training, and Wheel Chair mobility Inability to transfer - to improve, our physical therapists will perform initial evaluation of pt's status upon admission and devise an individualized program for Bed mobility Need for home safety evaluation - to improve, our physical therapists will perform initial evaluatio n of pt's status upon admission and devise an individualized program for Home Evaluation Need in caregiver upon discharge - to improve, our physical therapists will perform initial evaluati on of pt's status upon admission and devise an individualized program for Caregiver Training New precaution - to improve, our physical therapists will perform initial evaluation of pt's status upon admission and devise an individualized program for Patient precaution education Poor balance - to improve, our physical therapists will perform initial evaluation of pt's status up on admission and devise an individualized program for Balance Training Poor endurance - to improve, our physical therapists will perform initial evaluation of pt's status upon admission and devise an individualized program for Endurance Training Weakness - to improve, our physical therapists will perform initial evaluation of pt's status upon a dmission and devise an individualized program for Aquatic Therapy, Neuromuscular Reeducation, and Str engthening Achieving independence - to improve, our physical therapists will perform initial evaluation of pt's status upon admission and devise an individualized program for Community Reintegration Activities - Occupational Therapy ADL deficits - to improve, our occupation therapists will perform initial evaluation of pt's status upon admission and devise an individualized program for Bathing, Bed mobility, Community Reintegratio n, Cooking, Dressing, Eating, Fine Motor Skills, Grooming, Homemaking, Kitchen Mobility, Laundry, Pat ient Education, Safety Awareness, Splinting - Positioning, Transfers(Toilet, Tub, Shower), and Wheel Chair Management Cognitive deficits - to improve, our occupation therapists will perform initial evaluation of pt's s tatus upon admission and devise an individualized program for Cognition - orientation Need for career development counselor - to improve, our occupation therapists will perform initial evaluation of pt's status upon admission and devise an individualized program for Caregiver Training Weakness - to improve, our occupation therapists will perform initial evaluation of pt's status upon admission and devise an individualized program for Aquatic Therapy, Balance, Endurance, UE ROM, and UE strengthening - Other See attached MAR (Medication Administration Record) - Anterior Hip Precaution No abduction No active extension No adduction across midline No external rotation No hip flexion >90 degrees No internal rotation - Diet - Liquid Texture Continue Regular - Tube Feed Continue N/A - Diet Type Continue Regular - Posterior Hip Precaution No adduction across midline No external rotation No hip flexion >90 degrees No internal rotation No wheel chair propulsion - Weight Bearing Precaution WBAT left LE - Skin care per protocol - Diet - Solid Texture Continue Regular - Shower allowing shower FUNCTIONAL STATUS: UPDATED AT WEEKLY TEAM CONFERENCE - Bladder Same accident frequency: 7-Ind - No accidents in the past 7 days - Bowel Same accident frequency: 7-Ind - No accidents in the past 7 days - Walking Same score based on distance walked: 0(N/A) Same score based on distance walked: 3(>=150ft) - Wheelchair Same score based on distance traveled: 0(N/A) FUNCTIONAL STATUS: - Self-Care A. Eating Ind B. Grooming Shantel C. Bathing Lizz D. Dressing - Upper Lizz E. Dressing - Lower modA F. Toileting sup - Sphincter Control G. Bladder control Shantel H. Bowel control Shantel - Transfers Control I. Bed/Chair/Wheelchair sup J. Toilet sup K. Tub/Shower Lizz - Locomotion L. Walk/Wheelchair (B) Lizz M. Stairs modA - Communication N. Comprehension (B) Shantel O. Expression (B) Shantel - Social Cognition P. Social Interaction Shantel Q. Problem Solving sup R. Memory sup - Endurance Good - Balance Fair - Safety Awareness Fair QI SCORES: - Self-Care A. Eating 03-Partial/moderate assistance B. Oral hygiene 03-Partial/moderate assistance C. Toileting hygiene 88-Not attempted due to medical condition or safety concerns E. Shower/bathe self 88-Not attempted due to medical condition or safety concerns F. Upper body dressing 03-Partial/moderate assistance G. Lower body dressing 88-Not attempted due to medical condition or safety concerns H. Putting on/taking off footwear 88-Not attempted due to medical condition or safety concerns - Mobility A. Roll left and right 04-Supervision or touching assistance B. Sit to lying 04-Supervision or touching assistance C. Lying to sitting on side of bed 04-Supervision or touching assistance D. Sit to stand 04-Supervision or touching assistance E. Chair/epw-cx-mgyxi transfer 04-Supervision or touching assistance F. Toilet transfer 04-Supervision or touching assistance G. Car transfer 10-Not attempted due to environmental limitations I. Walk 10 feet 04-Supervision or touching assistance J. Walk 50 feet with two turns 04-Supervision or touching assistance K. Walk 150 feet 04-Supervision or touching assistance L. Walking 10 feet on uneven surfaces 88-Not attempted due to medical condition or safety concerns M. 1 step (curb) 88-Not attempted due to medical condition or safety concerns N. 4 steps 88-Not attempted due to medical condition or safety concerns O. 12 steps 88-Not attempted due to medical condition or safety concerns P. Picking up object 88-Not attempted due to medical condition or safety concerns R. Wheel 50 feet with two turns 09-Not applicable S. Wheel 150 feet 09-Not applicable - Bladder and Bowel Bladder continence Bowel continence - Endurance Fair - Balance Fair - Safety Awareness Fair [facility] 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
[2021-07-23] MEDS: CRANBERRY FRUIT EXTRACT 400 MG CAP PO SCH (19:18)
[2021-07-23] MEDS: DOCUSATE NA/SENNA CONC 1 TAB PO PRN (19:18)
[2021-07-24] MEDS: TAMSULOSIN 0.4 MG SR CAP PO SCH (07:42)
[2021-07-24] MEDS: MEGESTROL 40 MG TAB PO SCH (07:42)
[2021-07-24] MEDS: METOPROLOL TAR 50 MG TAB PO SCH ×2 (07:42→20:00)
[2021-07-24] MEDS: DULOXETINE 20 MG CAP PO SCH (07:43)
[2021-07-24] MEDS: ENSURE HIGH PROTEIN 237 ML CAN PO SCH ×2 (08:00→20:00)
[2021-07-24] MEDS: CRANBERRY FRUIT EXTRACT 400 MG CAP PO SCH ×3 (08:00→19:59)
[2021-07-24] MEDS: POLYETHYL GLY 3350 17 GM/DOSE PO SCH (08:00)
[2021-07-24] MEDS: LOSARTAN POTASSIUM 50 MG TABLET PO SCH ×2 (11:18→20:00)
[2021-07-24] MEDS: FERROUS SULFATE 325 MG TAB PO SCH ×2 (11:18→19:59)
[2021-07-24] MEDS ORDERED: NACHLORIDE 0.45% 1,000 ML IV SCH (15:00)
[2021-07-24] MEDS: ENOXAPARIN 30 MG/0.3 ML SQ SCH (16:44)
--- NOTE | 2021-07-24 18:50 | R.PN ---
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 Pt denied any Shortness of Breath. WBC 6.0, neutrophils 85.9, Hgb 9.5, prealbumin 6.7,Ca 7.7, glucose 119, UA esterase 1+, ketones 2+, W BC 5-10, COVID-19 is negative. Ambulated 810' with rolling walker and standby assistance. VITAL SIGNS Temperature: 99.5 F SBP/DBP: 147/63 Pulse: 58 Resp: 16 MEDICATION ALLERGIES: No Known Drug Allergies (NKDA) ENVIRONMENTAL ALLERGIES: - Substance Allergies None Known - Other Allergies None Known NURSING: - Shower allowing shower - Skin care per protocol PRECAUTIONS: - Posterior Hip Precaution No adduction across midline No external rotation No hip flexion >90 degrees No internal rotation No wheel chair propulsion - Weight Bearing Precaution WBAT left LE ACTIVITIES OOB only with supervision THERAPIES: - Dietary and Nutrition Adequate Nutrition. Nutritional Education. Nutritional Supplements. - Occupational Therapy Cognitive Retraining. Evaluate and Treat. ADL Training. Household Tasks. Patient/Family Education. Sa fety Awareness. UE Strengthening. Adaptive Equipment. Transfer Training. Visual Perceptual Training. - Speech Therapy Cognitive Training. Expressive Language Skills. Memory Strategies. Receptive Language Skills. Speech Intelligibility Training. - Physical Therapy Safety Awareness. Evaluate and Treat. Patient/Family Education. LE Strengthening. Balance Training. T ransfer Training. Mobility Training. LE ROM. PHYSICAL EXAM - Gen Alert and awake Lying in bed No apparent distress Oriented to: person, time, and place - Skin No breakdown No abnormalities - Eyes No abnormalities - ENMT No abnormalities - Neck No abnormalities - CVS RRR - Resp No wheezing - Abd Soft - GI Non distended Deferred - No abnormalities - Ext Left hip surgical site has good hemostasis. - MSK 4+/5 weakness in left lower extremity - Neuro 4/5 strength left lower extremity. - Psych No abnormalities ASSESSMENT: Pt. is a 86 yo Right-handed male.On 07/16/2021 he was admitted to [facility] with diagno sis LEFT HIP FRACTURE.His impairment category is Orthopaedic Disorders 08 - Unilateral Hip Fracture (08.11).Pre-morbidly, Pt. was independent/mod-I in Locomotion, Safety Awareness, Balance, and Social Cognition; and he had good Transfers Control, Self-Care, Sphincter Control, Endurance, and Communicat ion.Currently, he has deficits of Locomotion, Safety Awareness, Balance, Social Cognition, Transfers Control, Sphincter Control, Communication, Self-Care, and Endurance.Pt. is now referred to [facility] for acute in-patient rehabilitation in order to maximize patient's functional independence in activities of daily living, strength, ROM, and mobility.- Rehab Goal Patient has realistic goal of being discharged at assistance level 7-Ind to reside at Home with Fami ly/Relatives. MDM/PLAN: - Physical Therapy Decreased range of motion - to improve, our physical therapists will perform initial evaluation of p t's status upon admission and devise an individualized program for increasing patient's Range of [place] on. Gait dysfunction - to improve, our physical therapists will perform initial evaluation of pt's statu s upon admission and devise an individualized program for Gait Training, and Wheel Chair mobility Inability to transfer - to improve, our physical therapists will perform initial evaluation of pt's status upon admission and devise an individualized program for Bed mobility Need for home safety evaluation - to improve, our physical therapists will perform initial evaluatio n of pt's status upon admission and devise an individualized program for Home Evaluation Need in caregiver upon discharge - to improve, our physical therapists will perform initial evaluati on of pt's status upon admission and devise an individualized program for Caregiver Training New precaution - to improve, our physical therapists will perform initial evaluation of pt's status upon admission and devise an individualized program for Patient precaution education Poor balance - to improve, our physical therapists will perform initial evaluation of pt's status up on admission and devise an individualized program for Balance Training Poor endurance - to improve, our physical therapists will perform initial evaluation of pt's status upon admission and devise an individualized program for Endurance Training Weakness - to improve, our physical therapists will perform initial evaluation of pt's status upon a dmission and devise an individualized program for Aquatic Therapy, Neuromuscular Reeducation, and Str engthening Achieving independence - to improve, our physical therapists will perform initial evaluation of pt's status upon admission and devise an individualized program for Community Reintegration Activities - Occupational Therapy ADL deficits - to improve, our occupation therapists will perform initial evaluation of pt's status upon admission and devise an individualized program for Bathing, Bed mobility, Community Reintegratio n, Cooking, Dressing, Eating, Fine Motor Skills, Grooming, Homemaking, Kitchen Mobility, Laundry, Pat ient Education, Safety Awareness, Splinting - Positioning, Transfers(Toilet, Tub, Shower), and Wheel Chair Management Cognitive deficits - to improve, our occupation therapists will perform initial evaluation of pt's s tatus upon admission and devise an individualized program for Cognition - orientation Need for care transition coordinator - to improve, our occupation therapists will perform initial evaluation of pt's status upon admission and devise an individualized program for Caregiver Training Weakness - to improve, our occupation therapists will perform initial evaluation of pt's status upon admission and devise an individualized program for Aquatic Therapy, Balance, Endurance, UE ROM, and UE strengthening - Other See attached MAR (Medication Administration Record) - Anterior Hip Precaution No abduction No active extension No adduction across midline No external rotation No hip flexion >90 degrees No internal rotation - Diet - Liquid Texture Continue Regular - Tube Feed Continue N/A - Diet Type Continue Regular - Posterior Hip Precaution No adduction across midline No external rotation No hip flexion >90 degrees No internal rotation No wheel chair propulsion - Weight Bearing Precaution WBAT left LE - Skin care per protocol - Diet - Solid Texture Continue Regular - Shower allowing shower FUNCTIONAL STATUS: UPDATED AT WEEKLY TEAM CONFERENCE - Bladder Same accident frequency: 7-Ind - No accidents in the past 7 days - Bowel Same accident frequency: 7-Ind - No accidents in the past 7 days - Walking Same score based on distance walked: 0(N/A) Same score based on distance walked: 3(>=150ft) - Wheelchair Same score based on distance traveled: 0(N/A) FUNCTIONAL STATUS: - Self-Care A. Eating Ind B. Grooming Shantel C. Bathing Lizz D. Dressing - Upper Lizz E. Dressing - Lower modA F. Toileting sup - Sphincter Control G. Bladder control Shantel H. Bowel control Shantel - Transfers Control I. Bed/Chair/Wheelchair sup J. Toilet sup K. Tub/Shower Lizz - Locomotion L. Walk/Wheelchair (B) Lizz M. Stairs modA - Communication N. Comprehension (B) Shantel O. Expression (B) Shantel - Social Cognition P. Social Interaction Shantel Q. Problem Solving sup R. Memory sup - Endurance Good - Balance Fair - Safety Awareness Fair QI SCORES: - Self-Care A. Eating 03-Partial/moderate assistance B. Oral hygiene 03-Partial/moderate assistance C. Toileting hygiene 88-Not attempted due to medical condition or safety concerns E. Shower/bathe self 88-Not attempted due to medical condition or safety concerns F. Upper body dressing 03-Partial/moderate assistance G. Lower body dressing 88-Not attempted due to medical condition or safety concerns H. Putting on/taking off footwear 88-Not attempted due to medical condition or safety concerns - Mobility A. Roll left and right 04-Supervision or touching assistance B. Sit to lying 04-Supervision or touching assistance C. Lying to sitting on side of bed 04-Supervision or touching assistance D. Sit to stand 04-Supervision or touching assistance E. Chair/yzd-[id number] transfer 04-Supervision or touching assistance F. Toilet transfer 04-Supervision or touching assistance G. Car transfer 10-Not attempted due to environmental limitations I. Walk 10 feet 04-Supervision or touching assistance J. Walk 50 feet with two turns 04-Supervision or touching assistance K. Walk 150 feet 04-Supervision or touching assistance L. Walking 10 feet on uneven surfaces 88-Not attempted due to medical condition or safety concerns M. 1 step (curb) 88-Not attempted due to medical condition or safety concerns N. 4 steps 88-Not attempted due to medical condition or safety concerns O. 12 steps 88-Not attempted due to medical condition or safety concerns P. Picking up object 88-Not attempted due to medical condition or safety concerns R. Wheel 50 feet with two turns 09-Not applicable S. Wheel 150 feet 09-Not applicable - Bladder and Bowel Bladder continence Bowel continence - Endurance Fair - Balance Fair - Safety Awareness Fair CURRENT FUNC. 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
[2021-07-24] MEDS: MELATONIN 3 MG TABLET PO PRN (20:00)
[2021-07-24] MEDS: MEGESTROL 400 MG/10 ML UCUP PO SCH (20:00)
[2021-07-25 06:43] LABS: Absolute Lymphocytes (CBC) 0.7 K/uL (0.7-4.9); Hematocrit 27.5 % (39.6-49.0); Lymphocytes % 13.5 % (15.3-44.8); MPV 8.7 fL (7.6-11.3); RBC Red Blood Cell Count 2.89 M/uL (4.33-5.43)
[2021-07-25] MEDS: LOSARTAN POTASSIUM 50 MG TABLET PO SCH ×2 (07:46→19:51)
[2021-07-25] MEDS: CRANBERRY FRUIT EXTRACT 400 MG CAP PO SCH ×2 (07:46→19:53)
[2021-07-25] MEDS: DULOXETINE 20 MG CAP PO SCH (07:46)
[2021-07-25] MEDS: ENSURE ENLIVE 237 ML CAN PO SCH ×2 (07:47→19:52)
[2021-07-25] MEDS: TAMSULOSIN 0.4 MG SR CAP PO SCH (07:47)
[2021-07-25] MEDS: POLYETHYL GLY 3350 17 GM/DOSE PO SCH (07:47)
[2021-07-25] MEDS: FERROUS SULFATE 325 MG TAB PO SCH ×2 (07:47→19:51)
[2021-07-25] MEDS: METOPROLOL TAR 50 MG TAB PO SCH ×2 (07:47→19:52)
[2021-07-25] MEDS: MEGESTROL 400 MG/10 ML UCUP PO SCH ×2 (07:48→19:52)
--- NOTE | 2021-07-25 10:04 | P.RH.PN ---
Estimated Length of Stay: 10 Expected Discharge Date: 08/01/21 Family Support: Yes Digital Retoucher Goal: Mobility, Transfers, Self Care Vital Signs: Last Vital Signs Temp 98.0 F 07/25/21 07:13 Pulse 55 07/25/21 07:47 Resp 16 07/25/21 07:13 BP 186/53 H 07/25/21 07:47 Pulse Ox 98 07/25/21 07:13 Laboratory: Laboratory Last Values WBC 5.20 K/uL (4.3-10.9) 07/25/21 05:26 RBC 2.89 M/uL (4.33-5.43) L 07/25/21 05:26 Hgb 9.4 g/dL (13.6-17.9) L 07/25/21 05:26 Hct 27.5 % (39.6-49.0) L 07/25/21 05:26 MCV 95.1 fL (80-100) 07/25/21 05:26 MCH 32.5 pg (27.0-35.0) 07/25/21 05:26 MCHC 34.2 g/dL (32.0-36.0) 07/25/21 05:26 RDW 13.6 % (12.1-15.2) 07/25/21 05:26 Plt Count 265 K/uL (152-406) D 07/25/21 05:26 MPV 8.7 fL (7.6-11.3) 07/25/21 05:26 Neutrophils % 77.1 % (41.7-73.7) H 07/25/21 05:26 Lymphocytes % 13.5 % (15.3-44.8) L 07/25/21 05:26 Monocytes % 8.5 % (3.3-12.3) 07/25/21 05:26 Eosinophils % 0.6 % (0-4.4) 07/25/21 05:26 Basophils % 0.3 % (0-1.3) 07/25/21 05:26 Absolute Neutrophils 4.0 K/uL (1.8-8.0) 07/25/21 05:26 Segmented Neutrophils 90 % (40-80) H 07/23/21 04:33 Absolute Lymphocytes 0.7 K/uL (0.7-4.9) 07/25/21 05:26 Lymphocytes 7 % (15-42) L 07/23/21 04:33 Monocytes 3 % (0-10) 07/23/21 04:33 Absolute Monocytes 0.4 K/uL (0.1-1.3) 07/25/21 05:26 Absolute Eosinophils 0.0 K/uL (0-0.5) 07/25/21 05:26 Absolute Basophils 0.0 K/uL (0-0.5) 07/25/21 05:26 Platelet Estimate Adeq 07/23/21 04:33 Clumped Platelets Few 07/23/21 04:33 Morphology Comment Not seen (NOT SEEN) 07/23/21 04:33 Sodium 137 mmol/L (136-145) 07/25/21 05:26 Potassium 4.0 mmol/L (3.5-5.1) 07/25/21 05:26 Chloride 106 mmol/L (98-107) 07/25/21 05:26 Carbon Dioxide 23 mmol/L (21-32) 07/25/21 05:26 BUN 30 mg/dL (7-18) H 07/25/21 05:26 Creatinine 0.98 mg/dL (0.55-1.3) 07/25/21 05:26 Estimated GFR 73 mL/min (=/>90) L 07/25/21 05:26 Glucose 95 mg/dL (74-106) 07/25/21 05:26 Calcium 7.5 mg/dL (8.5-10.1) L 07/25/21 05:26 Magnesium 2.4 mg/dL (1.8-2.4) 07/23/21 04:33 Albumin 1.9 g/dL (3.4-5.0) L 07/23/21 04:33 Prealbumin 6.7 mg/dL (20-40) L 07/23/21 04:33 Urine Color Dk yellow (Yellow) 07/23/21 00:05 Urine Appearance Cloudy (Clear) 07/23/21 00:05 Urine pH 5.5 (5.0-7.0) 07/23/21 00:05 Ur Specific [place] 1.025 (1.005-1.030) 07/23/21 00:05 Glucose (UA)(Auto) Negative (Negative) 07/23/21 00:05 Urine Ketones 2+ (Negative) H 07/23/21 00:05 Urine Blood 3+ (Negative) H 07/23/21 00:05 Urine Nitrite Negative (Negative) 07/23/21 00:05 Urine Bilirubin Negative (Negative) 07/23/21 00:05 Urine Urobilinogen 2.0 mg/dL (0.2-1.0) H 07/23/21 00:05 Ur Leukocyte Esterase 1+ (Negative) H 07/23/21 00:05 Urine RBC 20-50 /HPF (NONE SEEN) H 07/23/21 00:05 Urine WBC 5-10 /HPF (<5) H 07/23/21 00:05 Ur Squamous Epith Cells WINCH DRIVER 07/23/21 00:05 Urine Bacteria 20-50 /HPF (NONE SEEN) H 07/23/21 00:05 Urine Culture Reflexed Not needed 07/23/21 00:05 Urine Total Protein 1+ (Negative) H 07/23/21 00:05 SARS-CoV-2 Rap RNA(RT-PCR) Negative (NEGATIVE) 07/23/21 06:50 Weight: 125 lb Wound Present: No Negative Pressure Wound Therapy Present: No Physician Update: He is making fair overall progress with therapy. He is mildly depressed and is on antidepressant medication. Walking 270' with standby, transferring with standby assistance. Min assistance with grooming, upper body min assistance, lower body dressing is max assistane, total assistance with shoes all due to TDWB hip precautions. Functional Improvement: Patient is currently performing transfers with Mod I, gait at SBA, etc. Patient is agreeable to therapy and is motivated for improvement. Summary: Patient's care plan and terminal manager goals have been reviewed and revised as necessary. Please see the Rehabilitation Signature page for all necessary signatures.
[2021-07-25] MEDS ORDERED: cloNIDine HCL 0.1 MG TAB PO PRN (15:44)
[2021-07-25] MEDS: ENOXAPARIN 30 MG/0.3 ML SQ SCH (16:59)
[2021-07-26 05:38] VITALS: BMI 17.4
[2021-07-26] MEDS: POLYETHYL GLY 3350 17 GM/DOSE PO SCH ×2 (08:00→09:36)
[2021-07-26] MEDS: TAMSULOSIN 0.4 MG SR CAP PO SCH (08:46)
[2021-07-26] MEDS: LOSARTAN POTASSIUM 50 MG TABLET PO SCH ×2 (08:46→19:50)
[2021-07-26] MEDS: DULOXETINE 20 MG CAP PO SCH (08:47)
[2021-07-26] MEDS: FERROUS SULFATE 325 MG TAB PO SCH ×2 (09:36→19:50)
[2021-07-26] MEDS: MEGESTROL 400 MG/10 ML UCUP PO SCH ×2 (09:36→19:49)
[2021-07-26] MEDS: METOPROLOL TAR 50 MG TAB PO SCH ×2 (09:37→19:50)
[2021-07-26] MEDS: CRANBERRY FRUIT EXTRACT 400 MG CAP PO SCH ×2 (09:37→19:50)
[2021-07-26] MEDS: ENSURE ENLIVE 237 ML CAN PO SCH ×2 (09:38→19:50)
[2021-07-26] MEDS: ACETAMINOPHEN 500 MG TAB PO PRN (10:17)
[2021-07-26] MEDS ORDERED: LOSARTAN POTASSIUM 50 MG TABLET PO ONE (15:43)
[2021-07-26] MEDS: ENOXAPARIN 30 MG/0.3 ML SQ SCH (16:16)
[2021-07-27] MEDS: POLYETHYL GLY 3350 17 GM/DOSE PO SCH (07:38)
[2021-07-27] MEDS: MEGESTROL 400 MG/10 ML UCUP PO SCH ×2 (07:38→20:00)
[2021-07-27] MEDS: CRANBERRY FRUIT EXTRACT 400 MG CAP PO SCH ×2 (07:39→19:59)
[2021-07-27] MEDS: FERROUS SULFATE 325 MG TAB PO SCH ×2 (07:40→19:59)
[2021-07-27] MEDS: DULOXETINE 20 MG CAP PO SCH (07:40)
[2021-07-27] MEDS: METOPROLOL TAR 50 MG TAB PO SCH ×2 (07:40→20:01)
[2021-07-27] MEDS: TAMSULOSIN 0.4 MG SR CAP PO SCH (07:40)
[2021-07-27] MEDS: ENSURE ENLIVE 237 ML CAN PO SCH ×2 (07:41→19:59)
[2021-07-27] MEDS: LOSARTAN POTASSIUM 50 MG TABLET PO SCH ×2 (07:42→20:00)
[2021-07-27] MEDS: ENOXAPARIN 30 MG/0.3 ML SQ SCH (17:17)
[2021-07-28] MEDS: TAMSULOSIN 0.4 MG SR CAP PO SCH (06:40)
[2021-07-28] MEDS: ACETAMINOPHEN 500 MG TAB PO PRN (06:41)
[2021-07-28] MEDS: DULOXETINE 20 MG CAP PO SCH (06:44)
[2021-07-28] MEDS: LOSARTAN POTASSIUM 50 MG TABLET PO SCH ×3 (08:00→20:40)
[2021-07-28] MEDS: POLYETHYL GLY 3350 17 GM/DOSE PO SCH (08:00)
[2021-07-28] MEDS: METOPROLOL TAR 50 MG TAB PO SCH ×2 (08:00→20:41)
[2021-07-28] MEDS: CRANBERRY FRUIT EXTRACT 400 MG CAP PO SCH ×2 (08:25→20:41)
[2021-07-28] MEDS: MEGESTROL 400 MG/10 ML UCUP PO SCH ×2 (08:25→20:45)
[2021-07-28] MEDS: FERROUS SULFATE 325 MG TAB PO SCH ×2 (08:26→20:41)
[2021-07-28] MEDS: ENSURE ENLIVE 237 ML CAN PO SCH ×2 (10:18→20:44)
[2021-07-28] MEDS: ENOXAPARIN 30 MG/0.3 ML SQ SCH (16:04)
--- NOTE | 2021-07-28 17:24 | R.PN ---
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 Pt denied any Shortness of Breath. WBC 5.2, neutrophils 77.1, Hgb 9.4, prealbumin 6.7,Ca 7.5, glucose 119, UA esterase 1+, ketones 2+, W BC 5-10, COVID-19 is negative. Ambulated 770' with rolling walker and standby assistance. Self-propelled wheelchair 250' with modifi ed independence. VITAL SIGNS Temperature: 98.9 F SBP/DBP: 149/62 Pulse: 68 Resp: 17 MEDICATION ALLERGIES: No Known Drug Allergies (NKDA) ENVIRONMENTAL ALLERGIES: - Substance Allergies None Known - Other Allergies None Known NURSING: - Shower allowing shower - Skin care per protocol PRECAUTIONS: - Posterior Hip Precaution No adduction across midline No external rotation No hip flexion >90 degrees No internal rotation No wheel chair propulsion - Weight Bearing Precaution WBAT left LE ACTIVITIES OOB only with supervision THERAPIES: - Dietary and Nutrition Adequate Nutrition. Nutritional Education. Nutritional Supplements. - Occupational Therapy Cognitive Retraining. Evaluate and Treat. ADL Training. Household Tasks. Patient/Family Education. Sa fety Awareness. UE Strengthening. Adaptive Equipment. Transfer Training. Visual Perceptual Training. - Speech Therapy Cognitive Training. Expressive Language Skills. Memory Strategies. Receptive Language Skills. Speech Intelligibility Training. - Physical Therapy Safety Awareness. Evaluate and Treat. Patient/Family Education. LE Strengthening. Balance Training. T ransfer Training. Mobility Training. LE ROM. PHYSICAL EXAM - Gen Alert and awake Lying in bed No apparent distress Oriented to: person, time, and place - Skin No breakdown No abnormalities - Eyes No abnormalities - ENMT No abnormalities - Neck No abnormalities - CVS RRR - Resp No wheezing - Abd Soft - GI Non distended Deferred - No abnormalities - Ext Left hip surgical site has good hemostasis. - MSK 4+/5 weakness in left lower extremity - Neuro 4/5 strength left lower extremity. - Psych No abnormalities ASSESSMENT: Pt. is a 86 yo Right-handed male.On 07/16/2021 he was admitted to [facility] with diagno sis LEFT HIP FRACTURE.His impairment category is Orthopaedic Disorders 08 - Unilateral Hip Fracture (02.26).Pre-morbidly, Pt. was independent/mod-I in Locomotion, Safety Awareness, Balance, and Social Cognition; and he had good Transfers Control, Self-Care, Sphincter Control, Endurance, and Communicat ion.Currently, he has deficits of Locomotion, Safety Awareness, Balance, Social Cognition, Transfers Control, Sphincter Control, Communication, Self-Care, and Endurance.Pt. is now referred to [facility] for acute in-patient rehabilitation in order to maximize patient's functional independence in activities of daily living, strength, ROM, and mobility.- Rehab Goal Patient has realistic goal of being discharged at assistance level 7-Ind to reside at Home with Fami ly/Relatives. MDM/PLAN: - Physical Therapy Decreased range of motion - to improve, our physical therapists will perform initial evaluation of p t's status upon admission and devise an individualized program for increasing patient's Range of [place] on. Gait dysfunction - to improve, our physical therapists will perform initial evaluation of pt's statu s upon admission and devise an individualized program for Gait Training, and Wheel Chair mobility Inability to transfer - to improve, our physical therapists will perform initial evaluation of pt's status upon admission and devise an individualized program for Bed mobility Need for home safety evaluation - to improve, our physical therapists will perform initial evaluatio n of pt's status upon admission and devise an individualized program for Home Evaluation Need in caregiver upon discharge - to improve, our physical therapists will perform initial evaluati on of pt's status upon admission and devise an individualized program for Caregiver Training New precaution - to improve, our physical therapists will perform initial evaluation of pt's status upon admission and devise an individualized program for Patient precaution education Poor balance - to improve, our physical therapists will perform initial evaluation of pt's status up on admission and devise an individualized program for Balance Training Poor endurance - to improve, our physical therapists will perform initial evaluation of pt's status upon admission and devise an individualized program for Endurance Training Weakness - to improve, our physical therapists will perform initial evaluation of pt's status upon a dmission and devise an individualized program for Aquatic Therapy, Neuromuscular Reeducation, and Str engthening Achieving independence - to improve, our physical therapists will perform initial evaluation of pt's status upon admission and devise an individualized program for Community Reintegration Activities - Occupational Therapy ADL deficits - to improve, our occupation therapists will perform initial evaluation of pt's status upon admission and devise an individualized program for Bathing, Bed mobility, Community Reintegratio n, Cooking, Dressing, Eating, Fine Motor Skills, Grooming, Homemaking, Kitchen Mobility, Laundry, Pat ient Education, Safety Awareness, Splinting - Positioning, Transfers(Toilet, Tub, Shower), and Wheel Chair Management Cognitive deficits - to improve, our occupation therapists will perform initial evaluation of pt's s tatus upon admission and devise an individualized program for Cognition - orientation Need for wound care rn - to improve, our occupation therapists will perform initial evaluation of pt's status upon admission and devise an individualized program for Caregiver Training Weakness - to improve, our occupation therapists will perform initial evaluation of pt's status upon admission and devise an individualized program for Aquatic Therapy, Balance, Endurance, UE ROM, and UE strengthening - Other See attached MAR (Medication Administration Record) - Anterior Hip Precaution No abduction No active extension No adduction across midline No external rotation No hip flexion >90 degrees No internal rotation - Diet - Liquid Texture Continue Regular - Tube Feed Continue N/A - Diet Type Continue Regular - Posterior Hip Precaution No adduction across midline No external rotation No hip flexion >90 degrees No internal rotation No wheel chair propulsion - Weight Bearing Precaution WBAT left LE - Skin care per protocol - Diet - Solid Texture Continue Regular - Shower allowing shower FUNCTIONAL STATUS: UPDATED AT WEEKLY TEAM CONFERENCE - Bladder Same accident frequency: 7-Ind - No accidents in the past 7 days - Bowel Same accident frequency: 7-Ind - No accidents in the past 7 days - Walking Same score based on distance walked: 0(N/A) Same score based on distance walked: 3(>=150ft) - Wheelchair Same score based on distance traveled: 0(N/A) FUNCTIONAL STATUS: - Self-Care A. Eating Ind B. Grooming Shantel C. Bathing Lizz D. Dressing - Upper Lizz E. Dressing - Lower modA F. Toileting sup - Sphincter Control G. Bladder control Shantel H. Bowel control Shantel - Transfers Control I. Bed/Chair/Wheelchair sup J. Toilet sup K. Tub/Shower Lizz - Locomotion L. Walk/Wheelchair (B) Lizz M. Stairs modA - Communication N. Comprehension (B) Shantel O. Expression (B) Shantel - Social Cognition P. Social Interaction Shantel Q. Problem Solving sup R. Memory sup - Endurance Good - Balance Fair - Safety Awareness Fair QI SCORES: - Self-Care A. Eating 03-Partial/moderate assistance B. Oral hygiene 03-Partial/moderate assistance C. Toileting hygiene 88-Not attempted due to medical condition or safety concerns E. Shower/bathe self 88-Not attempted due to medical condition or safety concerns F. Upper body dressing 03-Partial/moderate assistance G. Lower body dressing 88-Not attempted due to medical condition or safety concerns H. Putting on/taking off footwear 88-Not attempted due to medical condition or safety concerns - Mobility A. Roll left and right 04-Supervision or touching assistance B. Sit to lying 04-Supervision or touching assistance C. Lying to sitting on side of bed 04-Supervision or touching assistance D. Sit to stand 04-Supervision or touching assistance E. Chair/[id number]-[id number] transfer 04-Supervision or touching assistance F. Toilet transfer 04-Supervision or touching assistance G. Car transfer 10-Not attempted due to environmental limitations I. Walk 10 feet 04-Supervision or touching assistance J. Walk 50 feet with two turns 04-Supervision or touching assistance K. Walk 150 feet 04-Supervision or touching assistance L. Walking 10 feet on uneven surfaces 88-Not attempted due to medical condition or safety concerns M. 1 step (curb) 88-Not attempted due to medical condition or safety concerns N. 4 steps 88-Not attempted due to medical condition or safety concerns O. 12 steps 88-Not attempted due to medical condition or safety concerns P. Picking up object 88-Not attempted due to medical condition or safety concerns R. Wheel 50 feet with two turns 09-Not applicable S. Wheel 150 feet 09-Not applicable - Bladder and Bowel Bladder continence Bowel continence - Endurance Fair - Balance Fair - Safety Awareness Fair [facility] 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
[2021-07-29 05:01] LABS: Absolute Lymphocytes (CBC) 0.5 K/uL (0.7-4.9); Hematocrit 27.8 % (39.6-49.0); Lymphocytes % 10.7 % (15.3-44.8); MPV 8.4 fL (7.6-11.3); RBC Red Blood Cell Count 2.89 M/uL (4.33-5.43)
[2021-07-29 05:25] LABS: Potassium 4.5 mmol/L (3.5-5.1)
[2021-07-29] MEDS: LOSARTAN POTASSIUM 50 MG TABLET PO SCH ×3 (08:00→20:00)
[2021-07-29] MEDS: CRANBERRY FRUIT EXTRACT 400 MG CAP PO SCH ×2 (08:00→20:00)
[2021-07-29] MEDS: POLYETHYL GLY 3350 17 GM/DOSE PO SCH (08:00)
[2021-07-29] MEDS: METOPROLOL TAR 50 MG TAB PO SCH ×2 (08:16→20:00)
[2021-07-29] MEDS: TAMSULOSIN 0.4 MG SR CAP PO SCH ×2 (08:16→20:07)
[2021-07-29] MEDS: DULOXETINE 20 MG CAP PO SCH (08:17)
[2021-07-29] MEDS: MEGESTROL 400 MG/10 ML UCUP PO SCH ×2 (08:17→20:00)
[2021-07-29] MEDS: FERROUS SULFATE 325 MG TAB PO SCH ×2 (08:17→20:07)
[2021-07-29] MEDS ORDERED: POLYETHYL GLY 3350 17 GM/DOSE PO PRN (08:18)
[2021-07-29] MEDS: ENSURE ENLIVE 237 ML CAN PO SCH ×2 (10:27→20:00)
[2021-07-29] MEDS ORDERED: NA CHLORIDE 0.9% 1,000 ML IV SCH (13:00)
[2021-07-29] MEDS: ENOXAPARIN 30 MG/0.3 ML SQ SCH (16:57)
--- NOTE | 2021-07-29 18:48 | R.PN ---
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 Pt denied any Shortness of Breath. WBC 4.4, neutrophils 78.5, Hgb 9.3, prealbumin 6.7,Ca 7.3, glucose 119, UA esterase 1+, ketones 2+, W BC 5-10, COVID-19 is negative. Ambulated 500' with rolling walker and modified independence. Self-propelled wheelchair 250' with mod ified independence. VITAL SIGNS Temperature: 98.2 F SBP/DBP: 115/58 Pulse: 64 Resp: 16 MEDICATION ALLERGIES: No Known Drug Allergies (NKDA) ENVIRONMENTAL ALLERGIES: - Substance Allergies None Known - Other Allergies None Known NURSING: - Shower allowing shower - Skin care per protocol PRECAUTIONS: - Posterior Hip Precaution No adduction across midline No external rotation No hip flexion >90 degrees No internal rotation No wheel chair propulsion - Weight Bearing Precaution WBAT left LE ACTIVITIES OOB only with supervision THERAPIES: - Dietary and Nutrition Adequate Nutrition. Nutritional Education. Nutritional Supplements. - Occupational Therapy Cognitive Retraining. Evaluate and Treat. ADL Training. Household Tasks. Patient/Family Education. Sa fety Awareness. UE Strengthening. Adaptive Equipment. Transfer Training. Visual Perceptual Training. - Speech Therapy Cognitive Training. Expressive Language Skills. Memory Strategies. Receptive Language Skills. Speech Intelligibility Training. - Physical Therapy Safety Awareness. Evaluate and Treat. Patient/Family Education. LE Strengthening. Balance Training. T ransfer Training. Mobility Training. LE ROM. PHYSICAL EXAM - Gen Alert and awake Lying in bed No apparent distress Oriented to: person, time, and place - Skin No breakdown No abnormalities - Eyes No abnormalities - ENMT No abnormalities - Neck No abnormalities - CVS RRR - Resp No wheezing - Abd Soft - GI Non distended Deferred - No abnormalities - Ext Left hip surgical site has good hemostasis. - MSK 4+/5 weakness in left lower extremity - Neuro 4/5 strength left lower extremity. - Psych No abnormalities ASSESSMENT: Pt. is a 86 yo Right-handed male.On 07/16/2021 he was admitted to [facility] with diagno sis LEFT HIP FRACTURE.His impairment category is Orthopaedic Disorders 08 - Unilateral Hip Fracture (02.26).Pre-morbidly, Pt. was independent/mod-I in Locomotion, Safety Awareness, Balance, and Social Cognition; and he had good Transfers Control, Self-Care, Sphincter Control, Endurance, and Communicat ion.Currently, he has deficits of Locomotion, Safety Awareness, Balance, Social Cognition, Transfers Control, Sphincter Control, Communication, Self-Care, and Endurance.Pt. is now referred to [facility] for acute in-patient rehabilitation in order to maximize patient's functional independence in activities of daily living, strength, ROM, and mobility.- Rehab Goal Patient has realistic goal of being discharged at assistance level 7-Ind to reside at Home with Fami ly/Relatives. MDM/PLAN: - Physical Therapy Decreased range of motion - to improve, our physical therapists will perform initial evaluation of p t's status upon admission and devise an individualized program for increasing patient's Range of [place] on. Gait dysfunction - to improve, our physical therapists will perform initial evaluation of pt's statu s upon admission and devise an individualized program for Gait Training, and Wheel Chair mobility Inability to transfer - to improve, our physical therapists will perform initial evaluation of pt's status upon admission and devise an individualized program for Bed mobility Need for home safety evaluation - to improve, our physical therapists will perform initial evaluatio n of pt's status upon admission and devise an individualized program for Home Evaluation Need in caregiver upon discharge - to improve, our physical therapists will perform initial evaluati on of pt's status upon admission and devise an individualized program for Caregiver Training New precaution - to improve, our physical therapists will perform initial evaluation of pt's status upon admission and devise an individualized program for Patient precaution education Poor balance - to improve, our physical therapists will perform initial evaluation of pt's status up on admission and devise an individualized program for Balance Training Poor endurance - to improve, our physical therapists will perform initial evaluation of pt's status upon admission and devise an individualized program for Endurance Training Weakness - to improve, our physical therapists will perform initial evaluation of pt's status upon a dmission and devise an individualized program for Aquatic Therapy, Neuromuscular Reeducation, and Str engthening Achieving independence - to improve, our physical therapists will perform initial evaluation of pt's status upon admission and devise an individualized program for Community Reintegration Activities - Occupational Therapy ADL deficits - to improve, our occupation therapists will perform initial evaluation of pt's status upon admission and devise an individualized program for Bathing, Bed mobility, Community Reintegratio n, Cooking, Dressing, Eating, Fine Motor Skills, Grooming, Homemaking, Kitchen Mobility, Laundry, Pat ient Education, Safety Awareness, Splinting - Positioning, Transfers(Toilet, Tub, Shower), and Wheel Chair Management Cognitive deficits - to improve, our occupation therapists will perform initial evaluation of pt's s tatus upon admission and devise an individualized program for Cognition - orientation Need for health care assistant - to improve, our occupation therapists will perform initial evaluation of pt's status upon admission and devise an individualized program for Caregiver Training Weakness - to improve, our occupation therapists will perform initial evaluation of pt's status upon admission and devise an individualized program for Aquatic Therapy, Balance, Endurance, UE ROM, and UE strengthening - Other See attached MAR (Medication Administration Record) - Anterior Hip Precaution No abduction No active extension No adduction across midline No external rotation No hip flexion >90 degrees No internal rotation - Diet - Liquid Texture Continue Regular - Tube Feed Continue N/A - Diet Type Continue Regular - Posterior Hip Precaution No adduction across midline No external rotation No hip flexion >90 degrees No internal rotation No wheel chair propulsion - Weight Bearing Precaution WBAT left LE - Skin care per protocol - Diet - Solid Texture Continue Regular - Shower allowing shower FUNCTIONAL STATUS: UPDATED AT WEEKLY TEAM CONFERENCE - Bladder Same accident frequency: 7-Ind - No accidents in the past 7 days - Bowel Same accident frequency: 7-Ind - No accidents in the past 7 days - Walking Same score based on distance walked: 0(N/A) Same score based on distance walked: 3(>=150ft) - Wheelchair Same score based on distance traveled: 0(N/A) FUNCTIONAL STATUS: - Self-Care A. Eating Ind B. Grooming Shantel C. Bathing Lizz D. Dressing - Upper Lizz E. Dressing - Lower modA F. Toileting sup - Sphincter Control G. Bladder control Shantel H. Bowel control Shantel - Transfers Control I. Bed/Chair/Wheelchair sup J. Toilet sup K. Tub/Shower Lizz - Locomotion L. Walk/Wheelchair (B) Lizz M. Stairs modA - Communication N. Comprehension (B) Shantel O. Expression (B) Shantel - Social Cognition P. Social Interaction Shantel Q. Problem Solving sup R. Memory sup - Endurance Good - Balance Fair - Safety Awareness Fair QI SCORES: - Self-Care A. Eating 03-Partial/moderate assistance B. Oral hygiene 03-Partial/moderate assistance C. Toileting hygiene 88-Not attempted due to medical condition or safety concerns E. Shower/bathe self 88-Not attempted due to medical condition or safety concerns F. Upper body dressing 03-Partial/moderate assistance G. Lower body dressing 88-Not attempted due to medical condition or safety concerns H. Putting on/taking off footwear 88-Not attempted due to medical condition or safety concerns - Mobility A. Roll left and right 04-Supervision or touching assistance B. Sit to lying 04-Supervision or touching assistance C. Lying to sitting on side of bed 04-Supervision or touching assistance D. Sit to stand 04-Supervision or touching assistance E. Chair/pny-la-ydzfw transfer 04-Supervision or touching assistance F. Toilet transfer 04-Supervision or touching assistance G. Car transfer 10-Not attempted due to environmental limitations I. Walk 10 feet 04-Supervision or touching assistance J. Walk 50 feet with two turns 04-Supervision or touching assistance K. Walk 150 feet 04-Supervision or touching assistance L. Walking 10 feet on uneven surfaces 88-Not attempted due to medical condition or safety concerns M. 1 step (curb) 88-Not attempted due to medical condition or safety concerns N. 4 steps 88-Not attempted due to medical condition or safety concerns O. 12 steps 88-Not attempted due to medical condition or safety concerns P. Picking up object 88-Not attempted due to medical condition or safety concerns R. Wheel 50 feet with two turns 09-Not applicable S. Wheel 150 feet 09-Not applicable - Bladder and Bowel Bladder continence Bowel continence - Endurance Fair - Balance Fair - Safety Awareness Fair [facility] 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
[2021-07-29] MEDS: MELATONIN 3 MG TABLET PO PRN (20:08)
[2021-07-30] MEDS: CRANBERRY FRUIT EXTRACT 400 MG CAP PO SCH ×2 (08:00→21:04)
[2021-07-30] MEDS: LOSARTAN POTASSIUM 50 MG TABLET PO SCH ×2 (08:45→21:02)
[2021-07-30] MEDS: DULOXETINE 20 MG CAP PO SCH (08:45)
[2021-07-30] MEDS: TAMSULOSIN 0.4 MG SR CAP PO SCH ×2 (08:46→21:03)
[2021-07-30] MEDS: FERROUS SULFATE 325 MG TAB PO SCH ×2 (08:46→21:04)
[2021-07-30] MEDS: MEGESTROL 400 MG/10 ML UCUP PO SCH ×2 (10:26→21:04)
[2021-07-30] MEDS: ENSURE ENLIVE 237 ML CAN PO SCH ×2 (10:26→20:00)
[2021-07-30] MEDS: METOPROLOL TAR 50 MG TAB PO SCH ×2 (10:27→21:01)
[2021-07-30] MEDS: CALCIUM CARBONATE 500 MG TAB PO SCH (10:27)
--- NOTE | 2021-07-30 12:38 | RAD REPORT ---
EXAM DESCRIPTION: RAD - Chest Single View - 07/30/2021 12:07 pm CLINICAL HISTORY: r/o pnuemonia COMPARISON: Abdomen 1 View (KUB) dated 07/19/2021 FINDINGS: Lines: None. Lungs: No evidence of edema or pneumonia. Pleural: No significant pleural effusions or pneumothorax. Cardiac: The heart size is within normal limits. Bones: No acute fractures. Other: IMPRESSION: No acute cardiopulmonary disease.
[2021-07-30] MEDS: ENOXAPARIN 30 MG/0.3 ML SQ SCH (17:24)
--- NOTE | 2021-07-30 17:34 | R.PN ---
PROGRESS NOTES ENCOUNTER DATE AND TIME: 07/30/2021 17:25 (ACTIVE DIRECTORY ARCHITECT) NAME TEODORA GRANADOS DATE OF : 1935 DATE OF ADMISSION: 07/22/2021 12:54 (ACTIVE DIRECTORY ARCHITECT) LEFT HIP FRACTURECHIEF COMPLAINT: Left hip fracture and depression SUBJECTIVE: Pt denied any depression. Pt denied any Shortness of Breath. WBC 4.4, neutrophils 78.5, Hgb 9.3, prealbumin 6.7,Ca 7.3, glucose 119, UA esterase 1+, ketones 2+, W BC 5-10, Ambulated 500' with rolling walker and modified independence. Self-propelled wheelchair 250' with mod ified independence. COVID-19 is now positive on 07/30/21. It was negative on 07/23/21. He reports "I don't feel well". His chest x-ray shows no cardiopulmonary disease. VITAL SIGNS Temperature: 98.2 F SBP/DBP: 166/61 Pulse: 71 Resp: 16 MEDICATION ALLERGIES: No Known Drug Allergies (NKDA) ENVIRONMENTAL ALLERGIES: - Substance Allergies None Known - Other Allergies None Known NURSING: - Shower allowing shower - Skin care per protocol PRECAUTIONS: - Posterior Hip Precaution No adduction across midline No external rotation No hip flexion >90 degrees No internal rotation No wheel chair propulsion - Weight Bearing Precaution WBAT left LE ACTIVITIES OOB only with supervision THERAPIES: - Dietary and Nutrition Adequate Nutrition. Nutritional Education. Nutritional Supplements. - Occupational Therapy Cognitive Retraining. Evaluate and Treat. ADL Training. Household Tasks. Patient/Family Education. Sa fety Awareness. UE Strengthening. Adaptive Equipment. Transfer Training. Visual Perceptual Training. - Speech Therapy Cognitive Training. Expressive Language Skills. Memory Strategies. Receptive Language Skills. Speech Intelligibility Training. - Physical Therapy Safety Awareness. Evaluate and Treat. Patient/Family Education. LE Strengthening. Balance Training. T ransfer Training. Mobility Training. LE ROM. PHYSICAL EXAM - Gen Alert and awake Lying in bed No apparent distress Oriented to: person, time, and place - Skin No breakdown No abnormalities - Eyes No abnormalities - ENMT No abnormalities - Neck No abnormalities - CVS RRR - Resp No wheezing - Abd Soft - GI Non distended Deferred - No abnormalities - Ext Left hip surgical site has good hemostasis. - MSK 4+/5 weakness in left lower extremity - Neuro 4/5 strength left lower extremity. - Psych No abnormalities ASSESSMENT: Pt. is a 86 yo Right-handed male.On 07/16/2021 he was admitted to [facility] with diagno sis LEFT HIP FRACTURE.His impairment category is Orthopaedic Disorders 08 - Unilateral Hip Fracture (08.11).Pre-morbidly, Pt. was independent/mod-I in Locomotion, Safety Awareness, Balance, and Social Cognition; and he had good Transfers Control, Self-Care, Sphincter Control, Endurance, and Communicat ion.Currently, he has deficits of Locomotion, Safety Awareness, Balance, Social Cognition, Transfers Control, Sphincter Control, Communication, Self-Care, and Endurance.Pt. is now referred to [facility] for acute in-patient rehabilitation in order to maximize patient's functional independence in activities of daily living, strength, ROM, and mobility.- Rehab Goal Patient has realistic goal of being discharged at assistance level 7-Ind to reside at Home with Fami ly/Relatives. MDM/PLAN: - Physical Therapy Decreased range of motion - to improve, our physical therapists will perform initial evaluation of p t's status upon admission and devise an individualized program for increasing patient's Range of [place] on. Gait dysfunction - to improve, our physical therapists will perform initial evaluation of pt's statu s upon admission and devise an individualized program for Gait Training, and Wheel Chair mobility Inability to transfer - to improve, our physical therapists will perform initial evaluation of pt's status upon admission and devise an individualized program for Bed mobility Need for home safety evaluation - to improve, our physical therapists will perform initial evaluatio n of pt's status upon admission and devise an individualized program for Home Evaluation Need in caregiver upon discharge - to improve, our physical therapists will perform initial evaluati on of pt's status upon admission and devise an individualized program for Caregiver Training New precaution - to improve, our physical therapists will perform initial evaluation of pt's status upon admission and devise an individualized program for Patient precaution education Poor balance - to improve, our physical therapists will perform initial evaluation of pt's status up on admission and devise an individualized program for Balance Training Poor endurance - to improve, our physical therapists will perform initial evaluation of pt's status upon admission and devise an individualized program for Endurance Training Weakness - to improve, our physical therapists will perform initial evaluation of pt's status upon a dmission and devise an individualized program for Aquatic Therapy, Neuromuscular Reeducation, and Str engthening Achieving independence - to improve, our physical therapists will perform initial evaluation of pt's status upon admission and devise an individualized program for Community Reintegration Activities - Occupational Therapy ADL deficits - to improve, our occupation therapists will perform initial evaluation of pt's status upon admission and devise an individualized program for Bathing, Bed mobility, Community Reintegratio n, Cooking, Dressing, Eating, Fine Motor Skills, Grooming, Homemaking, Kitchen Mobility, Laundry, Pat ient Education, Safety Awareness, Splinting - Positioning, Transfers(Toilet, Tub, Shower), and Wheel Chair Management Cognitive deficits - to improve, our occupation therapists will perform initial evaluation of pt's s tatus upon admission and devise an individualized program for Cognition - orientation Need for health care assistant - to improve, our occupation therapists will perform initial evaluation of pt's status upon admission and devise an individualized program for Caregiver Training Weakness - to improve, our occupation therapists will perform initial evaluation of pt's status upon admission and devise an individualized program for Aquatic Therapy, Balance, Endurance, UE ROM, and UE strengthening - Other See attached MAR (Medication Administration Record) - Anterior Hip Precaution No abduction No active extension No adduction across midline No external rotation No hip flexion >90 degrees No internal rotation - Diet - Liquid Texture Continue Regular - Tube Feed Continue N/A - Diet Type Continue Regular - Posterior Hip Precaution No adduction across midline No external rotation No hip flexion >90 degrees No internal rotation No wheel chair propulsion - Weight Bearing Precaution WBAT left LE - Skin care per protocol - Diet - Solid Texture Continue Regular - Shower allowing shower FUNCTIONAL STATUS: UPDATED AT WEEKLY TEAM CONFERENCE - Bladder Same accident frequency: 7-Ind - No accidents in the past 7 days - Bowel Same accident frequency: 7-Ind - No accidents in the past 7 days - Walking Same score based on distance walked: 0(N/A) Same score based on distance walked: 3(>=150ft) - Wheelchair Same score based on distance traveled: 0(N/A) FUNCTIONAL STATUS: - Self-Care A. Eating Ind B. Grooming Shantel C. Bathing Lizz D. Dressing - Upper Lizz E. Dressing - Lower modA F. Toileting sup - Sphincter Control G. Bladder control Shantel H. Bowel control Shantel - Transfers Control I. Bed/Chair/Wheelchair sup J. Toilet sup K. Tub/Shower Lizz - Locomotion L. Walk/Wheelchair (B) Lizz M. Stairs modA - Communication N. Comprehension (B) Shantel O. Expression (B) Shantel - Social Cognition P. Social Interaction Shantel Q. Problem Solving sup R. Memory sup - Endurance Good - Balance Fair - Safety Awareness Fair QI SCORES: - Self-Care A. Eating 03-Partial/moderate assistance B. Oral hygiene 03-Partial/moderate assistance C. Toileting hygiene 88-Not attempted due to medical condition or safety concerns E. Shower/bathe self 88-Not attempted due to medical condition or safety concerns F. Upper body dressing 03-Partial/moderate assistance G. Lower body dressing 88-Not attempted due to medical condition or safety concerns H. Putting on/taking off footwear 88-Not attempted due to medical condition or safety concerns - Mobility A. Roll left and right 04-Supervision or touching assistance B. Sit to lying 04-Supervision or touching assistance C. Lying to sitting on side of bed 04-Supervision or touching assistance D. Sit to stand 04-Supervision or touching assistance E. Chair/zbo-fl-zirgs transfer 04-Supervision or touching assistance F. Toilet transfer 04-Supervision or touching assistance G. Car transfer 10-Not attempted due to environmental limitations I. Walk 10 feet 04-Supervision or touching assistance J. Walk 50 feet with two turns 04-Supervision or touching assistance K. Walk 150 feet 04-Supervision or touching assistance L. Walking 10 feet on uneven surfaces 88-Not attempted due to medical condition or safety concerns M. 1 step (curb) 88-Not attempted due to medical condition or safety concerns N. 4 steps 88-Not attempted due to medical condition or safety concerns O. 12 steps 88-Not attempted due to medical condition or safety concerns P. Picking up object 88-Not attempted due to medical condition or safety concerns R. Wheel 50 feet with two turns 09-Not applicable S. Wheel 150 feet 09-Not applicable - Bladder and Bowel Bladder continence Bowel continence - Endurance Fair - Balance Fair - Safety Awareness Fair CURRENT FUNC. DEFICITS: Self-Care, Mobility, Endurance, Balance, and Safety Awareness SIGNATURE PANEL: ([facility])
[2021-07-31 07:02] LABS: Absolute Lymphocytes (CBC) 0.6 K/uL (0.7-4.9); Hematocrit 29.1 % (39.6-49.0); Lymphocytes % 17.1 % (15.3-44.8); RBC Red Blood Cell Count 3.03 M/uL (4.33-5.43)
[2021-07-31 07:29] LABS: Albumin 1.8 g/dL (3.4-5.0); Potassium 4.3 mmol/L (3.5-5.1); Prealbumin 8.6 mg/dL (20-40)
[2021-07-31] MEDS: ENSURE ENLIVE 237 ML CAN PO SCH ×2 (08:00→20:00)
[2021-07-31] MEDS: TAMSULOSIN 0.4 MG SR CAP PO SCH ×2 (08:42→20:52)
[2021-07-31] MEDS: CALCIUM CARBONATE 500 MG TAB PO SCH (08:42)
[2021-07-31] MEDS: DULOXETINE 20 MG CAP PO SCH (08:42)
[2021-07-31] MEDS: MEGESTROL 400 MG/10 ML UCUP PO SCH ×2 (08:42→20:51)
[2021-07-31] MEDS: LOSARTAN POTASSIUM 50 MG TABLET PO SCH ×2 (08:43→20:51)
[2021-07-31] MEDS: CRANBERRY FRUIT EXTRACT 400 MG CAP PO SCH ×2 (08:43→20:51)
[2021-07-31] MEDS: FERROUS SULFATE 325 MG TAB PO SCH ×2 (08:43→20:52)
[2021-07-31] MEDS: METOPROLOL TAR 50 MG TAB PO SCH ×2 (08:43→20:52)
[2021-07-31] MEDS ORDERED: NA CHLORIDE 0.9% 1,000 ML IV SCH (14:30)
--- NOTE | 2021-07-31 16:45 | R.PN ---
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 Pt denied any Shortness of Breath. WBC 3.8, neutrophils 78.5, Hgb 9.6, prealbumin 8.6, Clinic Nurse 1.35, Ca 7.3, glucose 119, UA esterase 1+, ke tones 2+, WBC 5-10, Ambulated 120' with rolling walker and independence. Ready for discharge today. VITAL SIGNS Temperature: 98.1 F SBP/DBP: 165/56 Pulse: 62 Resp: 16 MEDICATION ALLERGIES: No Known Drug Allergies (NKDA) ENVIRONMENTAL ALLERGIES: - Substance Allergies None Known - Other Allergies None Known NURSING: - Shower allowing shower - Skin care per protocol PRECAUTIONS: - Posterior Hip Precaution No adduction across midline No external rotation No hip flexion >90 degrees No internal rotation No wheel chair propulsion - Weight Bearing Precaution WBAT left LE ACTIVITIES OOB only with supervision THERAPIES: - Dietary and Nutrition Adequate Nutrition. Nutritional Education. Nutritional Supplements. - Occupational Therapy Cognitive Retraining. Evaluate and Treat. ADL Training. Household Tasks. Patient/Family Education. Sa fety Awareness. UE Strengthening. Adaptive Equipment. Transfer Training. Visual Perceptual Training. - Speech Therapy Cognitive Training. Expressive Language Skills. Memory Strategies. Receptive Language Skills. Speech Intelligibility Training. - Physical Therapy Safety Awareness. Evaluate and Treat. Patient/Family Education. LE Strengthening. Balance Training. T ransfer Training. Mobility Training. LE ROM. PHYSICAL EXAM - Gen Alert and awake Lying in bed No apparent distress Oriented to: person, time, and place - Skin No breakdown No abnormalities - Eyes No abnormalities - ENMT No abnormalities - Neck No abnormalities - CVS RRR - Resp No wheezing - Abd Soft - GI Non distended Deferred - No abnormalities - Ext Left hip surgical site has good hemostasis. - MSK 4+/5 weakness in left lower extremity - Neuro 4/5 strength left lower extremity. - Psych No abnormalities ASSESSMENT: Pt. is a 86 yo Right-handed male.On 07/16/2021 he was admitted to [facility] with diagno sis LEFT HIP FRACTURE.His impairment category is Orthopaedic Disorders 08 - Unilateral Hip Fracture (08.11).Pre-morbidly, Pt. was independent/mod-I in Locomotion, Safety Awareness, Balance, and Social Cognition; and he had good Transfers Control, Self-Care, Sphincter Control, Endurance, and Communicat ion.Currently, he has deficits of Locomotion, Safety Awareness, Balance, Social Cognition, Transfers Control, Sphincter Control, Communication, Self-Care, and Endurance.Pt. is now referred to [facility] for acute in-patient rehabilitation in order to maximize patient's functional independence in activities of daily living, strength, ROM, and mobility.- Rehab Goal Patient has realistic goal of being discharged at assistance level 7-Ind to reside at Home with Fami ly/Relatives. MDM/PLAN: - Physical Therapy Decreased range of motion - to improve, our physical therapists will perform initial evaluation of p t's status upon admission and devise an individualized program for increasing patient's Range of [place] on. Gait dysfunction - to improve, our physical therapists will perform initial evaluation of pt's statu s upon admission and devise an individualized program for Gait Training, and Wheel Chair mobility Inability to transfer - to improve, our physical therapists will perform initial evaluation of pt's status upon admission and devise an individualized program for Bed mobility Need for home safety evaluation - to improve, our physical therapists will perform initial evaluatio n of pt's status upon admission and devise an individualized program for Home Evaluation Need in caregiver upon discharge - to improve, our physical therapists will perform initial evaluati on of pt's status upon admission and devise an individualized program for Caregiver Training New precaution - to improve, our physical therapists will perform initial evaluation of pt's status upon admission and devise an individualized program for Patient precaution education Poor balance - to improve, our physical therapists will perform initial evaluation of pt's status up on admission and devise an individualized program for Balance Training Poor endurance - to improve, our physical therapists will perform initial evaluation of pt's status upon admission and devise an individualized program for Endurance Training Weakness - to improve, our physical therapists will perform initial evaluation of pt's status upon a dmission and devise an individualized program for Aquatic Therapy, Neuromuscular Reeducation, and Str engthening Achieving independence - to improve, our physical therapists will perform initial evaluation of pt's status upon admission and devise an individualized program for Community Reintegration Activities - Occupational Therapy ADL deficits - to improve, our occupation therapists will perform initial evaluation of pt's status upon admission and devise an individualized program for Bathing, Bed mobility, Community Reintegratio n, Cooking, Dressing, Eating, Fine Motor Skills, Grooming, Homemaking, Kitchen Mobility, Laundry, Pat ient Education, Safety Awareness, Splinting - Positioning, Transfers(Toilet, Tub, Shower), and Wheel Chair Management Cognitive deficits - to improve, our occupation therapists will perform initial evaluation of pt's s tatus upon admission and devise an individualized program for Cognition - orientation Need for continuum of care manager - to improve, our occupation therapists will perform initial evaluation of pt's status upon admission and devise an individualized program for Caregiver Training Weakness - to improve, our occupation therapists will perform initial evaluation of pt's status upon admission and devise an individualized program for Aquatic Therapy, Balance, Endurance, UE ROM, and UE strengthening - Other See attached MAR (Medication Administration Record) - Anterior Hip Precaution No abduction No active extension No adduction across midline No external rotation No hip flexion >90 degrees No internal rotation - Diet - Liquid Texture Continue Regular - Tube Feed Continue N/A - Diet Type Continue Regular - Posterior Hip Precaution No adduction across midline No external rotation No hip flexion >90 degrees No internal rotation No wheel chair propulsion - Weight Bearing Precaution WBAT left LE - Skin care per protocol - Diet - Solid Texture Continue Regular - Shower allowing shower FUNCTIONAL STATUS: UPDATED AT WEEKLY TEAM CONFERENCE - Bladder Same accident frequency: 7-Ind - No accidents in the past 7 days - Bowel Same accident frequency: 7-Ind - No accidents in the past 7 days - Walking Same score based on distance walked: 0(N/A) Same score based on distance walked: 3(>=150ft) - Wheelchair Same score based on distance traveled: 0(N/A) FUNCTIONAL STATUS: - Self-Care A. Eating Ind B. Grooming Shantel C. Bathing Lizz D. Dressing - Upper Lizz E. Dressing - Lower modA F. Toileting sup - Sphincter Control G. Bladder control Shantel H. Bowel control Shantel - Transfers Control I. Bed/Chair/Wheelchair sup J. Toilet sup K. Tub/Shower Lizz - Locomotion L. Walk/Wheelchair (B) Lizz M. Stairs modA - Communication N. Comprehension (B) Shantel O. Expression (B) Shantel - Social Cognition P. Social Interaction Shantel Q. Problem Solving sup R. Memory sup - Endurance Good - Balance Fair - Safety Awareness Fair QI SCORES: - Self-Care A. Eating 03-Partial/moderate assistance B. Oral hygiene 03-Partial/moderate assistance C. Toileting hygiene 88-Not attempted due to medical condition or safety concerns E. Shower/bathe self 88-Not attempted due to medical condition or safety concerns F. Upper body dressing 03-Partial/moderate assistance G. Lower body dressing 88-Not attempted due to medical condition or safety concerns H. Putting on/taking off footwear 88-Not attempted due to medical condition or safety concerns - Mobility A. Roll left and right 04-Supervision or touching assistance B. Sit to lying 04-Supervision or touching assistance C. Lying to sitting on side of bed 04-Supervision or touching assistance D. Sit to stand 04-Supervision or touching assistance E. Chair/mud-vr-pftec transfer 04-Supervision or touching assistance F. Toilet transfer 04-Supervision or touching assistance G. Car transfer 10-Not attempted due to environmental limitations I. Walk 10 feet 04-Supervision or touching assistance J. Walk 50 feet with two turns 04-Supervision or touching assistance K. Walk 150 feet 04-Supervision or touching assistance L. Walking 10 feet on uneven surfaces 88-Not attempted due to medical condition or safety concerns M. 1 step (curb) 88-Not attempted due to medical condition or safety concerns N. 4 steps 88-Not attempted due to medical condition or safety concerns O. 12 steps 88-Not attempted due to medical condition or safety concerns P. Picking up object 88-Not attempted due to medical condition or safety concerns R. Wheel 50 feet with two turns 09-Not applicable S. Wheel 150 feet 09-Not applicable - Bladder and Bowel Bladder continence Bowel continence - Endurance Fair - Balance Fair - Safety Awareness Fair CURRENT FUNC. DEFICITS: Self-Care, Mobility, Endurance, Balance, and Safety Awareness SIGNATURE PANEL: (DISTRIBUTION CENTER ASSISTANT)
[2021-07-31] MEDS: ENOXAPARIN 30 MG/0.3 ML SQ SCH (17:49)
[2021-07-31] MEDS: MELATONIN 3 MG TABLET PO PRN (20:52)
[2021-08-01] MEDS: DULOXETINE 20 MG CAP PO SCH (07:19)
[2021-08-01] MEDS: FERROUS SULFATE 325 MG TAB PO SCH (07:19)
[2021-08-01] MEDS: CALCIUM CARBONATE 500 MG TAB PO SCH (07:19)
[2021-08-01] MEDS: LOSARTAN POTASSIUM 50 MG TABLET PO SCH (07:19)
[2021-08-01] MEDS: TAMSULOSIN 0.4 MG SR CAP PO SCH (07:19)
[2021-08-01] MEDS: METOPROLOL TAR 50 MG TAB PO SCH (07:20)
[2021-08-01 07:45] VITALS: BP 144/53; TEMP 97.8
[2021-08-01] MEDS: ENSURE ENLIVE 237 ML CAN PO SCH (08:00)
[2021-08-01] MEDS: CRANBERRY FRUIT EXTRACT 400 MG CAP PO SCH (08:00)
[2021-08-01] MEDS: MEGESTROL 400 MG/10 ML UCUP PO SCH (08:00)
--- NOTE | 2021-08-01 09:56 | P.RH.PN ---
Estimated Length of Stay: 10 Expected Discharge Date: 08/01/21 Discharge Disposition Plan: [facility] Family Support: Yes Long-Term Goal: Mobility, Transfers, Self Care Vital Signs: Last Vital Signs Temp 97.8 F 08/01/21 07:44 Pulse 54 08/01/21 07:44 Resp 16 08/01/21 07:44 BP 144/53 H 08/01/21 07:44 Pulse Ox 95 08/01/21 07:44 Laboratory: Laboratory Last Values WBC 3.80 K/uL (4.3-10.9) L 07/31/21 06:49 RBC 3.03 M/uL (4.33-5.43) L 07/31/21 06:49 Hgb 9.6 g/dL (13.6-17.9) L 07/31/21 06:49 Hct 29.1 % (39.6-49.0) L 07/31/21 06:49 MCV 96.0 fL (80-100) 07/31/21 06:49 MCH 31.6 pg (27.0-35.0) 07/31/21 06:49 MCHC 32.9 g/dL (32.0-36.0) 07/31/21 06:49 RDW 14.0 % (12.1-15.2) 07/31/21 06:49 Plt Count 236 K/uL (152-406) 07/31/21 06:49 MPV 8.0 fL (7.6-11.3) 07/31/21 06:49 Neutrophils % 75.7 % (41.7-73.7) H 07/31/21 06:49 Lymphocytes % 17.1 % (15.3-44.8) 07/31/21 06:49 Monocytes % 6.6 % (3.3-12.3) 07/31/21 06:49 Eosinophils % 0.1 % (0-4.4) 07/31/21 06:49 Basophils % 0.5 % (0-1.3) 07/31/21 06:49 Absolute Neutrophils 2.9 K/uL (1.8-8.0) 07/31/21 06:49 Segmented Neutrophils 90 % (40-80) H 07/23/21 04:33 Absolute Lymphocytes 0.6 K/uL (0.7-4.9) L 07/31/21 06:49 Lymphocytes 7 % (15-42) L 07/23/21 04:33 Monocytes 3 % (0-10) 07/23/21 04:33 Absolute Monocytes 0.3 K/uL (0.1-1.3) 07/31/21 06:49 Absolute Eosinophils 0.0 K/uL (0-0.5) 07/31/21 06:49 Absolute Basophils 0.0 K/uL (0-0.5) 07/31/21 06:49 Platelet Estimate Adeq 07/23/21 04:33 Clumped Platelets Few 07/23/21 04:33 Morphology Comment Not seen (NOT SEEN) 07/23/21 04:33 Sodium 136 mmol/L (136-145) 07/31/21 06:49 Potassium 4.3 mmol/L (3.5-5.1) 07/31/21 06:49 Chloride 107 mmol/L (98-107) 07/31/21 06:49 Carbon Dioxide 24 mmol/L (21-32) 07/31/21 06:49 BUN 20 mg/dL (7-18) H 07/31/21 06:49 Creatinine 1.35 mg/dL (0.55-1.3) H 07/31/21 06:49 Estimated GFR 50 mL/min (=/>90) L 07/31/21 06:49 Glucose 97 mg/dL (74-106) 07/31/21 06:49 Calcium 7.5 mg/dL (8.5-10.1) L 07/31/21 06:49 Magnesium 2.0 mg/dL (1.8-2.4) 07/31/21 06:49 Albumin 1.8 g/dL (3.4-5.0) L 07/31/21 06:49 Prealbumin 8.6 mg/dL (20-40) L 07/31/21 06:49 Urine Color Dk yellow (Yellow) 07/23/21 00:05 Urine Appearance Cloudy (Clear) 07/23/21 00:05 Urine pH 5.5 (5.0-7.0) 07/23/21 00:05 Ur Specific [place] 1.025 (1.005-1.030) 07/23/21 00:05 Glucose (UA)(Auto) Negative (Negative) 07/23/21 00:05 Urine Ketones 2+ (Negative) H 07/23/21 00:05 Urine Blood 3+ (Negative) H 07/23/21 00:05 Urine Nitrite Negative (Negative) 07/23/21 00:05 Urine Bilirubin Negative (Negative) 07/23/21 00:05 Urine Urobilinogen 2.0 mg/dL (0.2-1.0) H 07/23/21 00:05 Ur Leukocyte Esterase 1+ (Negative) H 07/23/21 00:05 Urine RBC 20-50 /HPF (NONE SEEN) H 07/23/21 00:05 Urine WBC 5-10 /HPF (<5) H 07/23/21 00:05 Ur Squamous Epith Cells [place] 07/23/21 00:05 Urine Bacteria 20-50 /HPF (NONE SEEN) H 07/23/21 00:05 Urine Culture Reflexed Not needed 07/23/21 00:05 Urine Total Protein 1+ (Negative) H 07/23/21 00:05 SARS-CoV-2 Rap RNA(RT-PCR) Positive (NEGATIVE) A 07/30/21 02:45 Weight: 111 lb 6.4 oz Wound Present: No Closed Surgical Incision Present: No Negative Pressure Wound Therapy Present: No Physician Update: He is ready for discharge today to SNF to continue PT/OT. He made good overall progress with therapy. Functional Improvement: Patient is currently not traveling 250 ft. w/ gait tx., due to room restriction, not physical ability. Patient unable to progress on stairs tx., at this time, also due to room restriction. Summary: Patient's care plan and retirement goals have been reviewed and revised as necessary. Please see the Rehabilitation Signature page for all necessary signatures.
== END 2021-08-01 10:25 | DRG 559 ==
LOC: 5TH 07-22 12:54
PROVIDERS: ADMIT Psychiatry & Neurology Neurology with Special Qualifications in Child Neurology; ATTEND Psychiatry & Neurology Neurology with Special Qualifications in Child Neurology
DX: S72.002D Fracture of unspecified part of neck of left femur, subsequent encounter for closed fracture with routine healing (principal); U07.1 COVID-19; F32.A Depression, unspecified; I10 Essential (primary) hypertension
CPT/HCPCS: 36415; 71045; 80048; 81001; 82040; 83735; 84134; 85025; 87086; 87088; 92523; 97110; 97116; 97161; 97530; 97542; J1650; J7030; U0002; U0003